=== PATIENT | male | born 1945 | race Two or more races ===

== ENCOUNTER 2019-09-20 21:00 | Inpatient (IN) | payer MEDICARE, OTHER ==
[~2019-09-20] VITALS: Ht 177.8 cm; Wt 73.9 kg
[~2019-09-20 21:00] MED LIST: ASPI-1169 PO; ATOR10TA PO; CARV3.122 PO; DOCU-199 PO; ISOS10TA8 PO; PRAS5TAB3 PO; QUIN10TA16 PO; RANO10003 PO; SENN8.6T22 PO
--- NOTE | 2019-09-20 21:00 | NUR ---
BIB PRIVATE AMBULANCE FROM [facility] C/O AGITATION [facility] pt awake, alert, -sob, nad noted, vss ,pending md nuñez
[2019-09-20 22:13] LABS: BASOPHILS # (AUTO) 0.1 /CMM (0.0-0.2); BASOPHILS % (AUTO) 0.6 % (0.0-2.0); EOSINOPHILS % (AUTO) 1.2 % (0.0-6.0); HEMATOCRIT 41 % (39-51); HEMOGLOBIN 13.7 g/dL (13.5-17.5); LYMPHOCYTES # (AUTO) 1.2 /CMM (0.8-4.8); LYMPHOCYTES % (AUTO) 11.7 % (20.0-44.0); MEAN CORPUSCULAR HGB CONC 34 g/dl (31.0-36.0); MEAN CORPUSCULAR VOLUME 94 fL (80-96); MONOCYTES # (AUTO) 0.5 /CMM (0.1-1.30); MONOCYTES % (AUTO) 5.1 % (2.0-12.0); NEUTROPHILS # (AUTO) 8.6 /CMM (1.8-8.9); NEUTROPHILS % (AUTO) 81.4 % (43.0-81.0); PLATELET COUNT (AUTO) 174 /CMM (150-450); RED BLOOD CELL COUNT(AUTO) 4.34 MIL/uL (4.5-6.0); WHITE BLOOD COUNT (AUTO) 10.5 K/uL (4.3-11.0)
[2019-09-20 22:21] LABS: CALCIUM, SERUM 9.2 mg/dL (8.5-10.1); CARBON DIOXIDE 28 mmol/L (21-32); CHLORIDE 110 mmol/L (98-107); GLUCOSE 146 mg/dL (74-106); POTASSIUM 4.3 mmol/L (3.5-5.1); SODIUM SERUM 144 mmol/L (136-145); UREA NITROGEN, BLOOD 26 mg/dL (7-18)
[2019-09-20 22:37] LABS: ACETAMINOPHEN 0 ug/ml (10-30); ALANINE AMINOTRANSFERASE 23 U/L (12-78); ALBUMIN 3.1 g/dL (3.4-5.0); ALCOHOL, BLOOD < 3 mg/dL (0-0); ALKALINE PHOSPHATASE 86 U/L (46-116); ASPARTATE AMINOTRANSFERASE 22 U/L (15-37); BILIRUBIN,DIRECT 0.1 mg/dL (0.0-0.2); BILIRUBIN,TOTAL 0.7 mg/dL (0.2-1.0); TOTAL PROTEIN, SERUM 6.8 g/dL (6.4-8.2)
--- NOTE | 2019-09-20 22:52 | NUR ---
CALLED REPAIRER MAINTENANCE BUILDING PEDIATRIC SPEECH LANGUAGE PATHOLOGIST AND LEFT A MESSAGE
--- NOTE | 2019-09-20 23:54 | NUR ---
magalie called back, will be here "soon"
[2019-09-21] MEDS ORDERED: ATOR40TA PO (01:09)
[2019-09-21] MEDS ORDERED: EZET10TA16 PO (01:09)
[2019-09-21] MEDS ORDERED: GABA600T12 PO (01:09)
[2019-09-21] MEDS ORDERED: DEXL60CA3 PO (01:09)
[2019-09-21] MEDS ORDERED: OMEG-143 PO (01:09)
[2019-09-21] MEDS ORDERED: DONE5TAB34 PO (01:09)
[2019-09-21] MEDS ORDERED: TAMS-12 PO (01:09)
[2019-09-21] MEDS ORDERED: MIRT15TA PO (01:09)
[2019-09-21] MEDS ORDERED: AMLO5TAB4 PO (01:09)
[2019-09-21] MEDS ORDERED: DOCU-141 PO (01:09)
[2019-09-21] MEDS ORDERED: ISOS30TA6 PO (01:09)
[2019-09-21] MEDS ORDERED: AMYL1CAP58 PO (01:09)
[2019-09-21] MEDS ORDERED: HYDR-4075 PO (01:09)
[2019-09-21] MEDS ORDERED: TICA90TA PO (01:09)
--- NOTE | 2019-09-21 01:17 | NUR ---
report given to elie cotton at gps pt will be transported to gps
[2019-09-21] MEDS ORDERED: LORAZEPAM 0.5 MG TABLET PO PRN (01:30)
[2019-09-21] MEDS ORDERED: BLOOD SUGAR DIAGNOSTIC 1 EACH STRIP IN ONE (01:30)
[2019-09-21] MEDS ORDERED: TEMAZEPAM 7.5 MG CAPSULE PO PRN (01:30)
[2019-09-21] MEDS ORDERED: MAG HYDROX/AL HYDROX/SIMETH 30 ML UDC PO PRN (01:30)
[2019-09-21] MEDS ORDERED: MAGNESIUM HYDROXIDE 30 ML UDC PO PRN (01:30)
[2019-09-21 01:59] VITALS: BP 130/46
--- NOTE | 2019-09-21 03:06 | NUR ---
GPS CABINETMAKER APPRENTICE NOTES: ADMITTED 73 Y/O MALE. PT [facility] ON A 5150. PER HOLD PT WAS SENT FROM NURSING FACILITY DO TO BEING AGGRESSIVE AND COMBATIVE TOWARDS STAFF. PT IS HERE FOR DTO AND GD. PT WAS YELLING, SCREAMING, THROWING THINGS UNPROVOKED. UPON FACE TO FACE ASSESSMENT PT IS ALERT/ ORIENTED X1, UNCOOPERATIVE, EASILY AGITATED, FORGETFUL, CONFUSED, UNKEMPT, POOR HISTORIAN, AND DISORGANIZED. PT IS ITALIAN SPEAKING AND UNDERSTAND/ SPEAKS LITTLE NAMIBIAN. PT STATED, "WHAT YOU WANT FROM ME?!" PT DENIES SI/HI AT THIS TIME. PT REFUSED TO SIGN CONSENT PAPERS DUE TO CONDITION. ENVIRONMENTAL SAFETY CHECK DONE Q 15 MIN. ENCOURAGE TO VERBALIZE FEELINGS AND CONCERNS TO STAFF. ORIENTED TO THE UNIT. VITALS TAKEN WNL. BELONGING AND CONTRABAND WERE DONE AND CHECKED. NURSING ASSESSMENT DONE. PT REFUSED TO TAKE PICTURE FOR IDENTIFICATION. PT REFUSED BODY ASSESSMENT. PT RIGHTS DISCUSS BY MARBLE INSTALLER SUPERVISOR. PROVIDED PT WITH HANDBOOK AND MED GUIDE. VITALS SIGNS TAKEN WNL. PT REFUSED INITIAL BLOOD SUGAR CHECK, EXPLAINED RISKS AND BENEFITS. STILL REFUSED X3. NO S/S OF RESP DISTRESS. BREATHING EVEN AND UNLABORED. CONTINUE TO MONITOR.
[2019-09-21 07:33] LABS: CREATININE 0.9 mg/dL (0.6-1.3)
[2019-09-21 08:00] VITALS: BP 105/59
[2019-09-21] MEDS ORDERED: hydrALAZINE HCL 10 MG TABLET PO PRN (08:30)
[2019-09-21] MEDS: PANTOPRAZOLE 40 MG TABLET.DR PO SCH (08:39)
[2019-09-21] MEDS: LIPASE/PROTEASE/AMYLASE 1 EACH CAPSULE.DR PO SCH (09:00)
[2019-09-21] MEDS: ISOSORBIDE MONONITRATE (30MG) 30 MG TAB.SR.24H PO SCH (09:00)
[2019-09-21] MEDS: TAMSULOSIN 0.4 MG CAP.SR.24H PO SCH (09:00)
[2019-09-21] MEDS ORDERED: EZETIMIBE 10 MG TABLET PO SCH (09:00)
[2019-09-21] MEDS: AMLODIPINE BESYLATE 5 MG TABLET PO SCH (09:00)
[2019-09-21] MEDS ORDERED: MISCELLANEOUS MED 1 EA EA PO SCH (09:00)
[2019-09-21] MEDS ORDERED: LORAZEPAM INJ 2 MG/ML VIAL IM STA (11:05)
[2019-09-21] MEDS ORDERED: OLANZAPINE 10 MG VIAL IM STA (11:05)
[2019-09-21] MEDS: GABAPENTIN 100 MG CAPSULE PO SCH ×2 (12:00→17:08)
--- NOTE | 2019-09-21 12:25 | NUR ---
PATIENT REFUSED 0900 MEDS
[2019-09-21] MEDS: TICAGRELOR 90 MG TABLET PO SCH ×2 (13:36→18:20)
--- NOTE | 2019-09-21 14:02 | NUR ---
Family Contact: SW called the pts nieceNi ([phone]), and left a voicemail that stated that the SW would like to speak to her regarding the pts initial and discharge plan.
--- NOTE | 2019-09-21 14:14 | NUR ---
Facility Contact: TRINH contacted Malathi ([phone]) from [facility] and confirmed that the pt can return to the facility once the pt is stable.
--- NOTE | 2019-09-21 15:36 | NUR ---
Group Note: SW encouraged pt to participate in group therapy on 09/21/19 at 2pm to discuss "social supports." Pt has been physically and verbally aggressive and has received IM shots. Pt is not appropriate for group.
--- NOTE | 2019-09-21 15:46 | NUR ---
Family Contact: TRINH called the pts cayetanoeceNi ([phone]), and informed her of pts admission to the hospital and the plan that the pt is going to return to [facility].
[2019-09-21 16:00] VITALS: BP 101/71
--- NOTE | 2019-09-21 16:11 | NUR ---
Initial Discharge Plan: Pt currently resides at [facility] located at [address] [place] [address], [place], [place]; ([phone]). Per pt's niece, Ni ([phone]), she wants the pt to return to the facility. SW will work with the MD and the pt regarding appropriate discharge planning. SW will form a safe and proper discharge.
[2019-09-21] MEDS: DOCUSATE SODIUM 100 MG CAPSULE PO SCH (17:08)
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
--- NOTE | 2019-09-21 20:00 | NUR ---
RN NOTES: PT. NOTED VERY ANXIOUS UNCOOPERTIVE PARANOID YELLING BANGING ARMS LAEGS WITH BED SIDE RAILS,AND VISUAL NOTED WITH SELF INFLICTED UPPER, LOWER EXTREMITIES WITH MULTIPLE SKIN DISCOLORATIONS , PT. REFUSED SKIN ASSESSMENT AND PICTURES AT THIS TIME , WILL CONTINUITY WITH CARE.
[2019-09-21 20:12] VITALS: BP 137/85
[2019-09-21] MEDS: LORAZEPAM 0.5 MG TABLET PO PRN (20:23)
--- NOTE | 2019-09-21 20:23 | NUR ---
RN NOTES: PT. C/O ANXIOUS , PARANOID, UNCOOPERATIVE, ATIVAN 1 MG PO PRN GIVEN PER PT. REQUEST , WILL CONTINUE TO MONITOR.
[2019-09-21] MEDS: ATORVASTATIN 40 MG TABLET PO SCH (22:08)
[2019-09-21] MEDS: QUETIAPINE FUMARATE 25 MG TABLET PO SCH (22:08)
[2019-09-21] MEDS: DONEPEZIL 5 MG TABLET PO SCH (22:08)
[2019-09-21] MEDS: GABAPENTIN 300 MG CAPSULE PO SCH (22:08)
[2019-09-21] MEDS: EZETIMIBE 10 MG TABLET PO SCH (22:08)
--- NOTE | 2019-09-21 23:00 | NUR ---
RN NOTES : PT. RESTING HIS BED COMFORTABLE AND ALLOWED TO TAKE SKIN PICTURES AT THIS TIME FOR RIGHT ARM,RIGHT HAND ,LEFT ARM LEFT HAND ,PICTURES TAKEN AND PLACED IN THE CHART.
[2019-09-22 07:24] LABS: CHOLESTEROL 91 mg/dL (<200); HDL CHOLESTEROL 26 mg/dL (40-60); LDL 56 mg/dL (0-99); TRIGLYCERIDES 76 mg/dL (30-150)
[2019-09-22 08:00] VITALS: BP 110/60
[2019-09-22] MEDS: TICAGRELOR 90 MG TABLET PO SCH ×3 (09:00→18:19)
[2019-09-22] MEDS: ISOSORBIDE MONONITRATE (30MG) 30 MG TAB.SR.24H PO SCH (09:00)
[2019-09-22] MEDS: AMLODIPINE BESYLATE 5 MG TABLET PO SCH (09:00)
[2019-09-22] MEDS: GABAPENTIN 100 MG CAPSULE PO SCH ×3 (09:00→18:19)
--- NOTE | 2019-09-22 15:25 | NUR ---
GROUP NOTE: SW encouraged pt to participate in group therapy on this present day to discuss "discharge planning." Pt was asleep and not easily aroused.
[2019-09-22] MEDS: ESCITALOPRAM OXALATE (10 MG) 10 MG TABLET PO SCH (15:30)
[2019-09-22] MEDS: PANTOPRAZOLE 40 MG TABLET.DR PO SCH (15:30)
--- NOTE | 2019-09-22 15:30 | NUR ---
PT. SLEPT TILL THIS TIME IN AFTERNOON,SO AM MEDS GIVEN AT THIS TIME.DR. GALEAS MADE AWARE.
[2019-09-22] MEDS: LIPASE/PROTEASE/AMYLASE 1 EACH CAPSULE.DR PO SCH (15:32)
[2019-09-22] MEDS: TAMSULOSIN 0.4 MG CAP.SR.24H PO SCH (15:37)
[2019-09-22 16:00] VITALS: BP 123/62
[2019-09-22] MEDS: DOCUSATE SODIUM 100 MG CAPSULE PO SCH (18:18)
[2019-09-22 20:40] VITALS: BP 125/77
[2019-09-22] MEDS: QUETIAPINE FUMARATE 25 MG TABLET PO SCH (21:35)
[2019-09-22] MEDS: ATORVASTATIN 40 MG TABLET PO SCH (21:35)
[2019-09-22] MEDS: EZETIMIBE 10 MG TABLET PO SCH (21:35)
[2019-09-22] MEDS: DONEPEZIL 5 MG TABLET PO SCH (21:35)
[2019-09-22] MEDS: GABAPENTIN 300 MG CAPSULE PO SCH (21:36)
[2019-09-23 08:00] VITALS: BP 105/67
[2019-09-23] MEDS: ISOSORBIDE MONONITRATE (30MG) 30 MG TAB.SR.24H PO SCH (09:00)
[2019-09-23] MEDS: AMLODIPINE BESYLATE 5 MG TABLET PO SCH (09:00)
[2019-09-23] MEDS: PANTOPRAZOLE 40 MG TABLET.DR PO SCH (10:42)
[2019-09-23] MEDS: GABAPENTIN 100 MG CAPSULE PO SCH ×2 (10:42→18:43)
[2019-09-23] MEDS: ESCITALOPRAM OXALATE (10 MG) 10 MG TABLET PO SCH (10:42)
[2019-09-23] MEDS: TAMSULOSIN 0.4 MG CAP.SR.24H PO SCH (10:43)
[2019-09-23] MEDS: TICAGRELOR 90 MG TABLET PO SCH ×2 (10:43→18:43)
[2019-09-23] MEDS: LIPASE/PROTEASE/AMYLASE 1 EACH CAPSULE.DR PO SCH (10:45)
[2019-09-23] MEDS: LORAZEPAM 0.5 MG TABLET PO PRN ×2 (11:36→21:43)
--- NOTE | 2019-09-23 11:37 | NUR ---
MEDICATED WITH ATIVAN PO SEEMS A LITTLE AGITATED.
[2019-09-23] MEDS ORDERED: LORAZEPAM INJ 2 MG/ML VIAL IM ONE (13:00)
[2019-09-23] MEDS ORDERED: OLANZAPINE 10 MG VIAL IM ONE (13:00)
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
--- NOTE | 2019-09-23 13:20 | NUR ---
RESTING IN RM. AFTER INJECTION.
--- NOTE | 2019-09-23 13:45 | NUR ---
WALKING IN [place],LOOKING A LITLE DROWSY.RN ASSISTED BACK TO BED.NON MACEDONIAN SPEAKING
--- NOTE | 2019-09-23 15:20 | NUR ---
GPS RN- RN SITTING AT DESK OUTSIDE PT. RM.HEARD LOUD NOISE,WENT IN TO PT. RM.FOUND PT LYING ON BACK IN RM.PT. ALERT AND ORIENTED,NON-LAO SPEAKING.INSTRUCTED TO STAY IN PLACE.RN CALLED FOR ADD'L. HELP.AND PT. ATTEMPTED TO GET SELF UP AND SLIPPED AGAIN. IN THE LAST HOUR PT CONTINUALLY TRIED TO GET OUT OF BED BY SELF. BED ALARM SET. AT 1305 HAD ZYPREXA , ATIVAN EMERGENCY INJECTION FOR ACTING OUT BEHAVIOR. SKIN ASSESSED NO APPARENT INJURY. ALTHOUGH NON-LAO SPEAKING RN QUESTIONED PT ABOUT PAIN, DIZZINESS, OR OTHER SYMPTOMS, PT DENIED. PTS VITALS WERE CHECKED AND WERE STABLE. MANAGER BILLING AWARE, DR. DURBIN MADE AWARE, WELL DR. GALEAS. NO APPARENT INJURY.
[2019-09-23 16:00] VITALS: BP 111/65
--- NOTE | 2019-09-23 16:53 | NUR ---
PT. WITH 1:1 SITTER VS STABLE.NO APPARENT INJURY,AWAITING CALL BACK FROM DR. GALEAS.
[2019-09-23] MEDS: DOCUSATE SODIUM 100 MG CAPSULE PO SCH (18:43)
--- NOTE | 2019-09-23 19:20 | NUR ---
RN INITIAL NOTES: RECEIVED PT, CURRENTLY IN MARI-CHAIR. S/P FALL THIS AFTERNOON. PER REPORT PT BEEN AGGRESSIVE AND COMBATIVE TRYING TO HIT STAFF, GOING FROM ROOM TO ROOM. PT APPEARS TO BE STRONG, MANAGE TO MOVE THE MARI-CHAIR, TRYING TO SLIP HIMSELF TO THE FLOOR, HIGH RISK FOR FALL, UNCOOPERATIVE, RESTLESS, AGITATED. REFUSING SKIN ASSESSMENT. SPEAKS MINIMAL SYRIAC. BUT WHEN ASKED, IF HE HAS PLANS OF HURTING HIMSELF, PT KEPT SAYING NO, AND STATED "GET ME OUT OF HERE!". SAFETY PRECAUTIONS FOR FALL INITIATED, WILL MONITOR [id number] FOR SAFETY AND ANY CHANGES IN BEHAVIOR.
--- NOTE | 2019-09-23 19:46 | NUR ---
CALL OUT TO FAMILY TO REPORT THAT PT. FELL TODAY IN RM.NUMBER LISTED IS FOR EUGENIE PEÑA.
--- NOTE | 2019-09-23 19:55 | NUR ---
rn notes: sitter arrived, given report for what happened during the day, and why sitter is needed. pt currently in dining area, sitting on gerichair, pt very agitated, managed to move and shake the gerichair. will put back in the bed/room.
[2019-09-23 20:00] VITALS: BP 125/88
--- NOTE | 2019-09-23 20:04 | NUR ---
rn notes: dorcas keenan received a message from dr yee, stating no x ray needed for the pt. notifed by day dorcas keenan regarding fall incident in the afternoon. rn employee healthranjeet nathan made aware.
[2019-09-23 20:58] VITALS: BP 125/88
[2019-09-23] MEDS: GABAPENTIN 300 MG CAPSULE PO SCH (21:42)
[2019-09-23] MEDS: ATORVASTATIN 40 MG TABLET PO SCH (21:42)
[2019-09-23] MEDS: DONEPEZIL 5 MG TABLET PO SCH (21:43)
[2019-09-23] MEDS: QUETIAPINE FUMARATE 25 MG TABLET PO SCH (21:43)
[2019-09-23] MEDS: EZETIMIBE 10 MG TABLET PO SCH (21:46)
--- NOTE | 2019-09-23 21:53 | NUR ---
PRN ATIVAN: PT RESTLESS, AGITATED, ANXIOUS, PRN ATIVAN ADMINISTERED AT THIS TIME. ALL DUE MEDS ADMINISTERED, CRUSHED ALL MEDS AND MIXED WITH ICE CREAM. PT SWALLOW ALL MEDS, SITJIMENEZ AND VALENCIA JESUS WITNESSES.
--- NOTE | 2019-09-23 22:31 | NUR ---
RN NOTES: PLACED PT BACK IN BED, KEPT COMFORTABLE, SITTER WARREN AT BED SIDE. SAFETY PRECAUTIONS FOR FALL INITIATED, SIDE RAILS UP X3 FOR SAFETY, WILL CONTINUE TO MONITOR PT [id number] FOR SAFETY AND ANY CHANGES IN BEHAVIOR.
[2019-09-24 08:00] VITALS: BP 101/60
[2019-09-24] MEDS: AMLODIPINE BESYLATE 5 MG TABLET PO SCH (09:00)
[2019-09-24] MEDS: ISOSORBIDE MONONITRATE (30MG) 30 MG TAB.SR.24H PO SCH (09:00)
[2019-09-24] MEDS: GABAPENTIN 100 MG CAPSULE PO SCH ×2 (09:29→17:48)
[2019-09-24] MEDS: TAMSULOSIN 0.4 MG CAP.SR.24H PO SCH (09:29)
[2019-09-24] MEDS: ESCITALOPRAM OXALATE (10 MG) 10 MG TABLET PO SCH (09:30)
[2019-09-24] MEDS: PANTOPRAZOLE 40 MG TABLET.DR PO SCH (09:30)
[2019-09-24] MEDS: LIPASE/PROTEASE/AMYLASE 1 EACH CAPSULE.DR PO SCH (10:06)
[2019-09-24] MEDS: TICAGRELOR 90 MG TABLET PO SCH ×2 (10:08→17:52)
[2019-09-24 16:00] VITALS: BP 105/54
--- NOTE | 2019-09-24 17:11 | NUR ---
PT. IS HIGHLY AGITATED, AGGRESSIVE , COMBATIVE AND HITTING STAFFS. CALLED DR. DURBIN AND ORDERED ZYPREXA 10 MG IM.
[2019-09-24] MEDS ORDERED: OLANZAPINE 10 MG VIAL IM ONE (17:30)
[2019-09-24] MEDS: DOCUSATE SODIUM 100 MG CAPSULE PO SCH (17:49)
[2019-09-24] MEDS: QUETIAPINE FUMARATE 25 MG TABLET PO SCH ×2 (17:49→21:10)
--- NOTE | 2019-09-24 20:00 | NUR ---
GPS/PUBLIC HEALTH EPIDEMIOLOGIST NOTES: PT. REFUSED HS VITALS. OFFERED 3X. EXPLAINED RISK AND BENEFITS. PT. STILL REFUSED.
[2019-09-24] MEDS: ATORVASTATIN 40 MG TABLET PO SCH (21:09)
[2019-09-24] MEDS: EZETIMIBE 10 MG TABLET PO SCH (21:09)
[2019-09-24] MEDS: DONEPEZIL 5 MG TABLET PO SCH (21:09)
[2019-09-24] MEDS: GABAPENTIN 300 MG CAPSULE PO SCH (21:10)
[2019-09-25] MEDS: LORAZEPAM 0.5 MG TABLET PO PRN (01:01)
[2019-09-25 08:00] VITALS: BP 105/80
[2019-09-25] MEDS: GABAPENTIN 100 MG CAPSULE PO SCH ×2 (08:51→16:32)
[2019-09-25] MEDS: ESCITALOPRAM OXALATE (10 MG) 10 MG TABLET PO SCH (08:51)
[2019-09-25] MEDS: TAMSULOSIN 0.4 MG CAP.SR.24H PO SCH (08:51)
[2019-09-25] MEDS: PANTOPRAZOLE 40 MG TABLET.DR PO SCH (08:52)
[2019-09-25] MEDS: ISOSORBIDE MONONITRATE (30MG) 30 MG TAB.SR.24H PO SCH (08:52)
[2019-09-25] MEDS: QUETIAPINE FUMARATE 25 MG TABLET PO SCH ×3 (08:53→21:31)
[2019-09-25] MEDS: AMLODIPINE BESYLATE 5 MG TABLET PO SCH (08:54)
[2019-09-25] MEDS: LIPASE/PROTEASE/AMYLASE 1 EACH CAPSULE.DR PO SCH (08:55)
[2019-09-25] MEDS: TICAGRELOR 90 MG TABLET PO SCH ×2 (08:56→16:31)
[2019-09-25 16:00] VITALS: BP 131/61
--- NOTE | 2019-09-25 16:51 | NUR ---
DR. DURIBN GAVE AN ORDER TO D/C 1:1. PT. IS CALM, COOPERATIVE AND FOLLOW DIRECTIONS. PT. ABLE TO WALK WITH NO ASSISTANCE.
[2019-09-25] MEDS: DOCUSATE SODIUM 100 MG CAPSULE PO SCH (17:09)
[2019-09-25 20:25] VITALS: BP 112/70
[2019-09-25] MEDS: DONEPEZIL 5 MG TABLET PO SCH (21:31)
[2019-09-25] MEDS: GABAPENTIN 300 MG CAPSULE PO SCH (21:31)
[2019-09-25] MEDS: ATORVASTATIN 40 MG TABLET PO SCH (21:31)
[2019-09-25] MEDS: EZETIMIBE 10 MG TABLET PO SCH (21:31)
[2019-09-26 08:00] VITALS: BP 107/54
[2019-09-26] MEDS: PANTOPRAZOLE 40 MG TABLET.DR PO SCH (08:24)
[2019-09-26] MEDS: TICAGRELOR 90 MG TABLET PO SCH ×2 (09:29→16:17)
[2019-09-26] MEDS: ISOSORBIDE MONONITRATE (30MG) 30 MG TAB.SR.24H PO SCH (09:29)
[2019-09-26] MEDS: GABAPENTIN 100 MG CAPSULE PO SCH ×2 (09:30→16:16)
[2019-09-26] MEDS: QUETIAPINE FUMARATE 25 MG TABLET PO SCH ×3 (09:30→21:02)
[2019-09-26] MEDS: ESCITALOPRAM OXALATE (10 MG) 10 MG TABLET PO SCH (09:30)
[2019-09-26] MEDS: TAMSULOSIN 0.4 MG CAP.SR.24H PO SCH (09:30)
[2019-09-26] MEDS: AMLODIPINE BESYLATE 5 MG TABLET PO SCH (09:30)
[2019-09-26] MEDS: LIPASE/PROTEASE/AMYLASE 1 EACH CAPSULE.DR PO SCH (09:31)
[2019-09-26 16:00] VITALS: BP 125/75
[2019-09-26] MEDS: DOCUSATE SODIUM 100 MG CAPSULE PO SCH (17:19)
[2019-09-26 20:16] VITALS: BP 99/53
[2019-09-26] MEDS: ATORVASTATIN 40 MG TABLET PO SCH (21:02)
[2019-09-26] MEDS: GABAPENTIN 300 MG CAPSULE PO SCH (21:03)
[2019-09-26] MEDS: EZETIMIBE 10 MG TABLET PO SCH (21:03)
[2019-09-26] MEDS: DONEPEZIL 5 MG TABLET PO SCH (21:03)
[2019-09-27 08:00] VITALS: BP 120/69
[2019-09-27] MEDS: TICAGRELOR 90 MG TABLET PO SCH ×2 (08:22→17:20)
[2019-09-27] MEDS: LIPASE/PROTEASE/AMYLASE 1 EACH CAPSULE.DR PO SCH (08:23)
[2019-09-27] MEDS: ESCITALOPRAM OXALATE (10 MG) 10 MG TABLET PO SCH (08:24)
[2019-09-27] MEDS: PANTOPRAZOLE 40 MG TABLET.DR PO SCH (08:24)
[2019-09-27] MEDS: AMLODIPINE BESYLATE 5 MG TABLET PO SCH (08:27)
[2019-09-27] MEDS: ISOSORBIDE MONONITRATE (30MG) 30 MG TAB.SR.24H PO SCH (08:27)
[2019-09-27] MEDS: TAMSULOSIN 0.4 MG CAP.SR.24H PO SCH (08:27)
[2019-09-27] MEDS: GABAPENTIN 100 MG CAPSULE PO SCH ×2 (08:27→17:19)
[2019-09-27] MEDS: QUETIAPINE FUMARATE 25 MG TABLET PO SCH ×3 (08:29→21:07)
[2019-09-27] MEDS: LORAZEPAM 0.5 MG TABLET PO PRN ×2 (12:47→18:52)
--- NOTE | 2019-09-27 12:49 | NUR ---
RN NOTE:PATIENT AGITATED MEDICATED WITH ATIVAN 1MG PO X1 WILL CONTINUE TO MONITOR .
[2019-09-27] MEDS: DOCUSATE SODIUM 100 MG CAPSULE PO SCH (17:19)
--- NOTE | 2019-09-27 18:58 | NUR ---
RN NOTE:PATIENT AGITATED MEDICATED WITH ATIVAN 1MG PO X1 WILL CONTINUE TO MONITOR .
[2019-09-27 20:47] VITALS: BP 140/70
--- NOTE | 2019-09-27 20:51 | NUR ---
GPS-RN LEFT A VOICEMAIL MESSAGE TO DR. GALEAS REGARDING EKG RESULT. AWAITING CALL BACK.
[2019-09-27] MEDS: DONEPEZIL 5 MG TABLET PO SCH (21:07)
[2019-09-27] MEDS: ATORVASTATIN 40 MG TABLET PO SCH (21:07)
[2019-09-27] MEDS: GABAPENTIN 300 MG CAPSULE PO SCH (21:07)
[2019-09-27] MEDS: EZETIMIBE 10 MG TABLET PO SCH (21:58)
--- NOTE | 2019-09-27 23:00 | NUR ---
GPS-RN PATIENT NOTED TO HAVE A SKIN TEAR ON RIGHT LOWER LEG MEASURING 1.3CM X 0.3CM. WITH SMALL AMOUNT OF BLEEDING NOTED. NO SWELLING NOTED. PT. DENIES PAIN WHEN TOUCHED ON AFFECTED AREA. WHEN ASKED PATIENT WHAT HAPPENED? PT. UNABLE TO GIVE DETAILS. INITIAL TREATMENT RENDERED. WOUND CARE CONSULT ORDERED. PATIENT MADE COMFORTABLE. HANDLED GENTLY DURING CARE. WILL CONTINUE TO MONITOR. Addendum: 09/28/19 at 0505 by DANIEL CAMPBELL RN UPON DOING MY WEEKLY SKIN ASSESSMENT.
[2019-09-27] MEDS: ACETAMINOPHEN 325 MG TABLET PO PRN (23:11)
[2019-09-28 08:00] VITALS: BP 108/55
[2019-09-28] MEDS: PANTOPRAZOLE 40 MG TABLET.DR PO SCH (08:49)
[2019-09-28] MEDS: GABAPENTIN 100 MG CAPSULE PO SCH ×2 (08:57→16:47)
[2019-09-28] MEDS: TAMSULOSIN 0.4 MG CAP.SR.24H PO SCH (08:57)
[2019-09-28] MEDS: AMLODIPINE BESYLATE 5 MG TABLET PO SCH (08:58)
[2019-09-28] MEDS: ESCITALOPRAM OXALATE (10 MG) 10 MG TABLET PO SCH (08:58)
[2019-09-28] MEDS: ISOSORBIDE MONONITRATE (30MG) 30 MG TAB.SR.24H PO SCH (08:58)
[2019-09-28] MEDS: TICAGRELOR 90 MG TABLET PO SCH ×2 (09:04→16:47)
[2019-09-28] MEDS: LIPASE/PROTEASE/AMYLASE 1 EACH CAPSULE.DR PO SCH (09:04)
[2019-09-28] MEDS: QUETIAPINE FUMARATE 25 MG TABLET PO SCH ×3 (09:06→21:14)
--- NOTE | 2019-09-28 10:21 | NUR ---
WOUND CARE CONSULT: PT PRESENTS WITH MULTIPLE AREAS OF SKIN DISCOLORATION AND RT LOWER LEG SKIN TEAR. PT COMBATIVE AT TIMES. RECOMMEND DPM CONSULT. DR TERRY NOTIFIED OF CONSULT REQUEST. PT IS AMBULATORY AND INCONTINENT AT TIMES. RECOMMENDATIONS MADE FOR SKIN PROTECTION. DISCUSSED WITH NURSING STAFF. WILL SEE PRN. DONATO IN AGREEMENT WITH PLAN OF CARE. Addendum: 09/28/19 at 1023 by OLIMPIA WEISS WNDNU Amended: Links added.
--- NOTE | 2019-09-28 10:30 | NUR ---
GPS RN NOTES DR. DURBIN AT BEDSIDE EARLIER. DC'D LEXPRO AND PATIENT STARTED ON BUSPAR 5 MG TID
[2019-09-28] MEDS: Z GUARD REMEDY 2 OZ OINT TP SCH (10:42)
[2019-09-28] MEDS: LORAZEPAM 0.5 MG TABLET PO PRN ×2 (10:46→23:25)
[2019-09-28] MEDS: busPIRone 5 MG TABLET PO SCH ×3 (10:46→16:47)
--- NOTE | 2019-09-28 15:19 | NUR ---
Family Contact: TRINH called the pts Ni hamilton ([phone]), and left a voicemail that provided her with an update regarding the pts progress. TRINH stated that there is no discharge date at this time and that the pt will be returning to [facility].
[2019-09-28 16:00] VITALS: BP 110/54
[2019-09-28] MEDS: DOCUSATE SODIUM 100 MG CAPSULE PO SCH (17:03)
[2019-09-28 20:41] VITALS: BP 117/62
[2019-09-28] MEDS: EZETIMIBE 10 MG TABLET PO SCH (21:13)
[2019-09-28] MEDS: ATORVASTATIN 40 MG TABLET PO SCH (21:14)
[2019-09-28] MEDS: GABAPENTIN 300 MG CAPSULE PO SCH (21:14)
[2019-09-28] MEDS: DONEPEZIL 5 MG TABLET PO SCH (21:14)
--- NOTE | 2019-09-28 23:28 | NUR ---
RN NOTES ; PT. NOTED VERY ANXIOUS , NOT FOLLOWING ANY REDIRECTIONS ,BANGING UPPER LOWER EXTRIMITES WITH SIDE RAILS AND CHAIRS, NOT STAYING IN BED ATIVAN 1 MG PO PRN GIVEN , WILL CONTINUE TO MONITOR.
[2019-09-29 08:00] VITALS: BP 127/65
[2019-09-29] MEDS: busPIRone 5 MG TABLET PO SCH ×3 (09:09→16:20)
[2019-09-29] MEDS: AMLODIPINE BESYLATE 5 MG TABLET PO SCH (09:09)
[2019-09-29] MEDS: PANTOPRAZOLE 40 MG TABLET.DR PO SCH (09:09)
[2019-09-29] MEDS: QUETIAPINE FUMARATE 25 MG TABLET PO SCH ×3 (09:09→21:30)
[2019-09-29] MEDS: TAMSULOSIN 0.4 MG CAP.SR.24H PO SCH (09:09)
[2019-09-29] MEDS: ISOSORBIDE MONONITRATE (30MG) 30 MG TAB.SR.24H PO SCH (09:09)
[2019-09-29] MEDS: TICAGRELOR 90 MG TABLET PO SCH ×2 (09:10→16:20)
[2019-09-29] MEDS: LIPASE/PROTEASE/AMYLASE 1 EACH CAPSULE.DR PO SCH (09:12)
[2019-09-29] MEDS: Z GUARD REMEDY 2 OZ OINT TP SCH (09:13)
[2019-09-29] MEDS: GABAPENTIN 100 MG CAPSULE PO SCH ×3 (12:58→21:00)
--- NOTE | 2019-09-29 14:21 | NUR ---
EARLIER THIS MORNING DURING MY ROUNDS, I NOTICED PATIENT HAD A BRUISE UNDERNEATH HIS RIGHT EYE AND A NEW SCRATCH ON THE BACK OF HIS RIGHT HAND. WHEN INTERVIEWING THE PATIENT, I ASKED HIM IF HE REMEMBERS ANYTHING PERTAINING MY FINDINGS. PER WANDA NATH, DURING THE DAY SHIFT 09/28/2019, PATIENT HAD NO BRUISING UNDERNEATH HIS EYE. PATIENT DOES NOT REMEMBER WHAT HAPPENED AND HE DENIES ANY PAIN TO EITHER SITE. I TOOK PHOTOS OF BOTH SITES AND PLACED IT IN CHART. INFORMED CNVÍCTOR, MUSKRAT TRAPPER, JORDI, SENIOR INTERACTION DESIGNER, WAYNE, DR DURBIN AND DR GALEAS WITH NNO FOR PATIENT. PATIENT DOES NOT SEEM TO BE IN ANY DISTRESS AT THIS TIME AND HAS NO CONCERNS REGARDING HIS SAFETY. WILL CONTINUE TO MONITOR PATIENT FOR SAFETY AND BEHAVIOR PER GPS PROTOCOL. Addendum: 09/29/19 at 1448 by DRE LEE RN ATTEMPTED TO CONTACT NIECE. NO RESPONSE. LEFT VOICEMAIL. AWAITING CALL BACK. INCIDENT REPORT DONE.
--- NOTE | 2019-09-29 14:45 | NUR ---
GROUP NOTE: SW encouraged pt to participate in group on this present day discussing "positive coping skills." Pt not appropriate for group at this time due to his aggressive behavior.
[2019-09-29 16:00] VITALS: BP 104/62
[2019-09-29] MEDS: DOCUSATE SODIUM 100 MG CAPSULE PO SCH (17:18)
[2019-09-29 20:15] VITALS: BP 114/63
[2019-09-29] MEDS: ATORVASTATIN 40 MG TABLET PO SCH (21:30)
[2019-09-29] MEDS: GABAPENTIN 300 MG CAPSULE PO SCH (21:30)
[2019-09-29] MEDS: EZETIMIBE 10 MG TABLET PO SCH (21:30)
[2019-09-29] MEDS: DONEPEZIL 5 MG TABLET PO SCH (21:30)
--- NOTE | 2019-09-29 21:40 | NUR ---
GPS/RN NEURONTIN 100 MG PO QID AT 2100 NOT ADMINISTERED I ADMINISTERED ALREADY THE NEURONTIN 600 MG AT HS. WILL HAVE THE MED CLARIFIED WITH IN A.M.
[2019-09-30 08:00] VITALS: BP 101/57
[2019-09-30] MEDS: ISOSORBIDE MONONITRATE (30MG) 30 MG TAB.SR.24H PO SCH (09:00)
[2019-09-30] MEDS: PANTOPRAZOLE 40 MG TABLET.DR PO SCH (09:22)
[2019-09-30] MEDS: TAMSULOSIN 0.4 MG CAP.SR.24H PO SCH (09:22)
[2019-09-30] MEDS: busPIRone 5 MG TABLET PO SCH ×3 (09:22→17:47)
[2019-09-30] MEDS: GABAPENTIN 100 MG CAPSULE PO SCH ×2 (09:22→12:57)
[2019-09-30] MEDS: QUETIAPINE FUMARATE 25 MG TABLET PO SCH ×3 (09:22→21:15)
[2019-09-30] MEDS: LIPASE/PROTEASE/AMYLASE 1 EACH CAPSULE.DR PO SCH (09:23)
[2019-09-30] MEDS: TICAGRELOR 90 MG TABLET PO SCH ×2 (09:23→18:00)
[2019-09-30] MEDS: Z GUARD REMEDY 2 OZ OINT TP SCH (09:24)
[2019-09-30] MEDS: LORAZEPAM 0.5 MG TABLET PO PRN (15:03)
--- NOTE | 2019-09-30 15:19 | NUR ---
Group Note: SW encouraged pt to participate in group therapy on 09/30/19 at 2pm to discuss discharge planning. Pt has been physically and verbally aggressive on the unit and does not want to participate in any activities. Pt does not appear to be appropriate for group.
[2019-09-30 16:00] VITALS: BP 135/54
[2019-09-30] MEDS: DOCUSATE SODIUM 100 MG CAPSULE PO SCH (17:46)
[2019-09-30 19:40] VITALS: BP 106/69
[2019-09-30] MEDS: GABAPENTIN 300 MG CAPSULE PO SCH (21:14)
[2019-09-30] MEDS: ATORVASTATIN 40 MG TABLET PO SCH (21:14)
[2019-09-30] MEDS: DONEPEZIL 5 MG TABLET PO SCH (21:15)
[2019-09-30] MEDS: EZETIMIBE 10 MG TABLET PO SCH (21:15)
[2019-10-01] VITALS: BP 122/65
[2019-10-01] MEDS: LORAZEPAM 0.5 MG TABLET PO PRN (00:08)
--- NOTE | 2019-10-01 00:15 | NUR ---
GPS RN NOTES: UPON DOING ROUNDS, PT SITING IN THE DAY ROOM YELLING. PT YELLING AT OTHER PT. ASKED PT HOW HE IS FEELING PT STATED, "ANGRY AND NOT RELAXED RIGHT NOW." CHECKED PT VITALS W/ NORMAL LEVELS. ASKED PT IF HE IS FEELING ANXIOUS. PT STATED, "YES!". OFFERED ATIVAN 1MG PO PRN ORDERED. PT AGREED AND TOLERATED MEDICATION WELL. CONTINUE TO MONITOR.
[2019-10-01 08:00] VITALS: BP 124/66
[2019-10-01] MEDS: PANTOPRAZOLE 40 MG TABLET.DR PO SCH (08:18)
[2019-10-01] MEDS: ISOSORBIDE MONONITRATE (30MG) 30 MG TAB.SR.24H PO SCH (09:50)
[2019-10-01] MEDS: QUETIAPINE FUMARATE 25 MG TABLET PO SCH ×3 (09:50→21:29)
[2019-10-01] MEDS: busPIRone 5 MG TABLET PO SCH ×3 (09:50→17:01)
[2019-10-01] MEDS: LIPASE/PROTEASE/AMYLASE 1 EACH CAPSULE.DR PO SCH (09:50)
[2019-10-01] MEDS: TAMSULOSIN 0.4 MG CAP.SR.24H PO SCH (09:50)
[2019-10-01] MEDS: Z GUARD REMEDY 2 OZ OINT TP SCH (09:50)
[2019-10-01] MEDS: TICAGRELOR 90 MG TABLET PO SCH ×2 (09:51→17:01)
[2019-10-01 16:00] VITALS: BP 100/52
[2019-10-01] MEDS: DOCUSATE SODIUM 100 MG CAPSULE PO SCH (17:01)
[2019-10-01 20:00] VITALS: BP 105/61
[2019-10-01 20:16] VITALS: BP 105/61
[2019-10-01] MEDS: GABAPENTIN 300 MG CAPSULE PO SCH (21:29)
[2019-10-01] MEDS: ATORVASTATIN 40 MG TABLET PO SCH (21:29)
[2019-10-01] MEDS: DONEPEZIL 5 MG TABLET PO SCH (21:30)
[2019-10-01] MEDS: EZETIMIBE 10 MG TABLET PO SCH (21:30)
[2019-10-01 22:59] VITALS: BP 100/52
[2019-10-02 08:00] VITALS: BP 100/52
[2019-10-02] MEDS: TAMSULOSIN 0.4 MG CAP.SR.24H PO SCH (08:17)
[2019-10-02] MEDS: ISOSORBIDE MONONITRATE (30MG) 30 MG TAB.SR.24H PO SCH (08:17)
[2019-10-02] MEDS: TICAGRELOR 90 MG TABLET PO SCH ×2 (08:17→17:23)
[2019-10-02] MEDS: QUETIAPINE FUMARATE 25 MG TABLET PO SCH ×3 (08:17→21:08)
[2019-10-02] MEDS: busPIRone 5 MG TABLET PO SCH ×4 (08:17→17:20)
[2019-10-02] MEDS: PANTOPRAZOLE 40 MG TABLET.DR PO SCH (08:17)
[2019-10-02] MEDS: LIPASE/PROTEASE/AMYLASE 1 EACH CAPSULE.DR PO SCH (08:17)
[2019-10-02] MEDS: Z GUARD REMEDY 2 OZ OINT TP SCH (08:17)
[2019-10-02 16:00] VITALS: BP 101/54
--- NOTE | 2019-10-02 17:23 | NUR ---
NOTICED BLOOD IN DIAPER. NOTICED WHAT APPEARS TO BE AN EXTERNAL HEMORRHOID ON BUTTOCK. CALLED DR GALEAS OFFICE. SPOKE TO DR CEMENT SPRAYER HELPER. DR. RUBIO. CBC, PREP H AND COLACE BID ORDERED. NOTIFIED OF DANNY ADMINISTERED BID FOR ANTICOAGULATION.
[2019-10-02] MEDS ORDERED: PHENYLEPHRINE/SHK LV/MO/PET,WH 30 GM TUBE RC PRN (17:30)
[2019-10-02 18:07] LABS: BASOPHILS % (AUTO) 0.3 % (0.0-2.0); EOSINOPHILS % (AUTO) 1.3 % (0.0-6.0); HEMATOCRIT 37 % (39-51); HEMOGLOBIN 12.1 g/dL (13.5-17.5); LYMPHOCYTES % (AUTO) 8.6 % (20.0-44.0); MEAN CORPUSCULAR HGB CONC 33 g/dl (31.0-36.0); MEAN CORPUSCULAR VOLUME 93 fL (80-96); MONOCYTES # (AUTO) 0.7 /CMM (0.1-1.30); NEUTROPHILS # (AUTO) 9.3 /CMM (1.8-8.9); NEUTROPHILS % (AUTO) 83.8 % (43.0-81.0); PLATELET COUNT (AUTO) 174 /CMM (150-450); RED BLOOD CELL COUNT(AUTO) 3.91 MIL/uL (4.5-6.0); WHITE BLOOD COUNT (AUTO) 11.1 K/uL (4.3-11.0)
[2019-10-02 20:25] VITALS: BP 117/51
[2019-10-02] MEDS: EZETIMIBE 10 MG TABLET PO SCH (21:07)
[2019-10-02] MEDS: DONEPEZIL 5 MG TABLET PO SCH (21:07)
[2019-10-02] MEDS: GABAPENTIN 300 MG CAPSULE PO SCH (21:08)
[2019-10-02] MEDS: ATORVASTATIN 40 MG TABLET PO SCH (21:08)
[2019-10-03 08:00] VITALS: BP 100/52
[2019-10-03] MEDS: ISOSORBIDE MONONITRATE (30MG) 30 MG TAB.SR.24H PO SCH (09:00)
[2019-10-03] MEDS: PANTOPRAZOLE 40 MG TABLET.DR PO SCH (09:00)
[2019-10-03] MEDS: LIPASE/PROTEASE/AMYLASE 1 EACH CAPSULE.DR PO SCH (09:00)
[2019-10-03] MEDS: busPIRone 5 MG TABLET PO SCH ×3 (09:00→17:00)
[2019-10-03] MEDS: Z GUARD REMEDY 2 OZ OINT TP SCH (09:00)
[2019-10-03] MEDS: TICAGRELOR 90 MG TABLET PO SCH ×2 (09:00→17:00)
[2019-10-03] MEDS: QUETIAPINE FUMARATE 25 MG TABLET PO SCH ×3 (09:00→22:17)
[2019-10-03] MEDS: TAMSULOSIN 0.4 MG CAP.SR.24H PO SCH (09:00)
[2019-10-03] MEDS ORDERED: DOCUSATE SODIUM 100 MG CAPSULE PO SCH (09:00)
[2019-10-03] MEDS: DONEPEZIL 5 MG TABLET PO SCH (13:34)
[2019-10-03 16:00] VITALS: BP 110/71
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
[2019-10-03 20:00] VITALS: BP 111/61
[2019-10-03 20:39] VITALS: BP 111/61
[2019-10-03] MEDS: SENNOSIDES 8.6 MG TABLET PO SCH (22:17)
[2019-10-03] MEDS: GABAPENTIN 300 MG CAPSULE PO SCH (22:17)
[2019-10-03] MEDS: EZETIMIBE 10 MG TABLET PO SCH (22:17)
[2019-10-03] MEDS: ATORVASTATIN 40 MG TABLET PO SCH (22:18)
[2019-10-03 23:00] VITALS: BP 115/64
[2019-10-04 08:00] VITALS: BP 110/61
[2019-10-04] MEDS: busPIRone 5 MG TABLET PO SCH ×3 (08:16→17:19)
[2019-10-04] MEDS: ISOSORBIDE MONONITRATE (30MG) 30 MG TAB.SR.24H PO SCH (08:20)
[2019-10-04] MEDS: QUETIAPINE FUMARATE 25 MG TABLET PO SCH ×3 (08:21→22:27)
[2019-10-04] MEDS: LIPASE/PROTEASE/AMYLASE 1 EACH CAPSULE.DR PO SCH (08:21)
[2019-10-04] MEDS: Z GUARD REMEDY 2 OZ OINT TP SCH (08:22)
[2019-10-04] MEDS: PANTOPRAZOLE 40 MG TABLET.DR PO SCH (08:22)
[2019-10-04] MEDS: TAMSULOSIN 0.4 MG CAP.SR.24H PO SCH (08:23)
[2019-10-04] MEDS: TICAGRELOR 90 MG TABLET PO SCH ×2 (08:30→17:19)
[2019-10-04 16:00] VITALS: BP 100/55
[2019-10-04 20:00] VITALS: BP 115/54
[2019-10-04 20:04] VITALS: BP 115/54
[2019-10-04] MEDS: EZETIMIBE 10 MG TABLET PO SCH (22:26)
[2019-10-04] MEDS: DONEPEZIL 5 MG TABLET PO SCH (22:26)
[2019-10-04] MEDS: GABAPENTIN 300 MG CAPSULE PO SCH (22:26)
[2019-10-04] MEDS: ATORVASTATIN 40 MG TABLET PO SCH (22:26)
[2019-10-04] MEDS: SENNOSIDES 8.6 MG TABLET PO SCH (22:26)
[2019-10-05] MEDS: Z GUARD REMEDY 2 OZ OINT TP PRN ×3 (01:41→20:40)
[2019-10-05 08:00] VITALS: BP 107/57
[2019-10-05] MEDS: ISOSORBIDE MONONITRATE (30MG) 30 MG TAB.SR.24H PO SCH (09:00)
--- NOTE | 2019-10-05 09:25 | NUR ---
Facility Contact: TRINH contacted Malathi ([phone]) from [facility] and informed her that the pt is being discharged back to their facility the following day.
[2019-10-05] MEDS: busPIRone 5 MG TABLET PO SCH ×3 (09:47→17:14)
[2019-10-05] MEDS: TAMSULOSIN 0.4 MG CAP.SR.24H PO SCH (09:47)
[2019-10-05] MEDS: QUETIAPINE FUMARATE 25 MG TABLET PO SCH ×3 (09:47→22:01)
[2019-10-05] MEDS: TICAGRELOR 90 MG TABLET PO SCH ×2 (09:50→17:16)
[2019-10-05] MEDS: Z GUARD REMEDY 2 OZ OINT TP SCH (09:52)
[2019-10-05] MEDS: LIPASE/PROTEASE/AMYLASE 1 EACH CAPSULE.DR PO SCH (10:05)
[2019-10-05 16:00] VITALS: BP 137/60
[2019-10-05] MEDS: ACETAMINOPHEN 325 MG TABLET PO PRN (19:21)
--- NOTE | 2019-10-05 19:24 | NUR ---
PRN TYLENOL GIVEN PATIENT HAS C/O BODY ACHE & HAS BODY TEMP OF 100.4 AT THIS TIME. PRN TYLENOL 650 MG PO GIVEN. WILL REASSESS FOR EFFECTIVENESS.
[2019-10-05 20:00] VITALS: BP 123/59
--- NOTE | 2019-10-05 20:35 | NUR ---
GPS RN NOTE RECHECKED BODY TEMP, 99.7 AT THIS TIME, PO FLUIDS OFFERED TOLERATED, SOCKS REMOVED. WILL CONTINUE TO MONITOR CLOSELY FOR ANY CHANGES.
[2019-10-05 20:37] VITALS: BP 123/59
[2019-10-05] MEDS: ATORVASTATIN 40 MG TABLET PO SCH (22:01)
[2019-10-05] MEDS: SENNOSIDES 8.6 MG TABLET PO SCH (22:01)
[2019-10-05] MEDS: EZETIMIBE 10 MG TABLET PO SCH (22:01)
[2019-10-05] MEDS: DONEPEZIL 5 MG TABLET PO SCH (22:01)
[2019-10-05] MEDS: GABAPENTIN 300 MG CAPSULE PO SCH (22:02)
--- NOTE | 2019-10-05 22:20 | NUR ---
GPS RN NOTE RECHECKED BODY TEMP, 98.3. NO ACUTE DISTRESS NOTED. MED PT. IS MED COMPLAINT. WILL CONTINUE TO MONITOR.
[2019-10-06 08:00] VITALS: BP 100/61
--- NOTE | 2019-10-06 08:41 | NUR ---
Family Contact: TRINH called the pts Ni hamilton ([phone]), and left a voicemail that stated that the pt is being discharged to [facility] today.
[2019-10-06] MEDS: TICAGRELOR 90 MG TABLET PO SCH (08:53)
[2019-10-06] MEDS: LIPASE/PROTEASE/AMYLASE 1 EACH CAPSULE.DR PO SCH (08:55)
[2019-10-06] MEDS: TAMSULOSIN 0.4 MG CAP.SR.24H PO SCH (08:55)
[2019-10-06] MEDS: QUETIAPINE FUMARATE 25 MG TABLET PO SCH (08:55)
[2019-10-06 08:56] VITALS: BP 100/61
[2019-10-06] MEDS: Z GUARD REMEDY 2 OZ OINT TP SCH (08:56)
[2019-10-06] MEDS: ISOSORBIDE MONONITRATE (30MG) 30 MG TAB.SR.24H PO SCH (08:56)
[2019-10-06] MEDS: busPIRone 5 MG TABLET PO SCH ×2 (08:56→13:01)
--- NOTE | 2019-10-06 12:22 | NUR ---
Facility Contact: TRINH faxed updated notes to [facility] with attn to Malathi to the fax number: [phone].
--- NOTE | 2019-10-06 13:41 | NUR ---
Discharge Note: Pt was discharged to [facility] (SNF) [place] at [address] [place] [address]; ([phone]). Pt was transported via [facility] at 1PM. Pts Ni hamilton ([phone]), was notified. Upon discharge, the pt appeared to be in a euthymic mood and a distressed mood. Pt denied both suicidal and homicidal ideation as well as visual and auditory hallucinatons. Pt appeared to be in a euthymic mood and presents to have a distressed and confused affect. Pt will continue to be under the care of his psychiatrist, Dr. Galarza, located at [address], [place] [address]; and grinding room inspector, Dr. Haile, located at [address] [address]; .
--- NOTE | 2019-10-06 14:30 | NUR ---
RN NOTE- PT DC TO [facility] VIA GURNEY AND AMBULANCE AT THIS TIME. ALERT ORIENTED TO PERSON ONLY. PT IS CONFUSED THOUGH DIRECTABLE AND COOPERATIVE. DENIES SI HI. VS - STABLE. MEDICATION PROFILE ORDERS AND DC PAPERWORK REVIEWED W AMBULANCE STAFF AND THEY VERBALIZED UNDERSTANDING. VALUABLES RETURNED TO PT. ID WRISTBAND REMOVED AND PT TAKEN OFF UNIT.
== END 2019-10-06 14:30 | DRG 885 ==
LOC: ER 21:02 → GPS 09-21 00:58
PROVIDERS: ADMIT Psychiatry & Neurology Psychiatry; ATTEND Internal Medicine
DX: F29 Unspecified psychosis not due to a substance or known physiological condition (principal); F02.81 Dementia in other diseases classified elsewhere, unspecified severity, with behavioral disturbance; G93.40 Encephalopathy, unspecified; R64 Cachexia; G30.9 Alzheimer's disease, unspecified; K21.9 Gastro-esophageal reflux disease without esophagitis; J44.9 Chronic obstructive pulmonary disease, unspecified; I25.10 Atherosclerotic heart disease of native coronary artery without angina pectoris; Z95.1 Presence of aortocoronary bypass graft; Z79.899 Other long term (current) drug therapy; Z98.61 Coronary angioplasty status; N40.0 Benign prostatic hyperplasia without lower urinary tract symptoms; F41.1 Generalized anxiety disorder; S80.12XA Contusion of left lower leg, initial encounter; S80.11XA Contusion of right lower leg, initial encounter; X58.XXXA Exposure to other specified factors, initial encounter; Y93.9 Activity, unspecified; Y92.129 Unspecified place in nursing home as the place of occurrence of the external cause; R73.03 Prediabetes; K86.81 Exocrine pancreatic insufficiency; Z68.23 Body mass index [BMI] 23.0-23.9, adult
CPT/HCPCS: 36415; 80048-TC; 80061-TC; 80076-TC; 82565-TC; 85025-TC; 87081-TC; 97116-TC; 97530-TC; G0480; J2060; J3490

== ENCOUNTER 2020-04-12 10:20 | Inpatient (IN) | payer MEDICARE, OTHER ==
[~2020-04-12] VITALS: Ht 180.3 cm; Wt 72.6 kg
[~2020-04-12 10:20] MED LIST changes: +AMLO5TAB4 PO; +AMYL1CAP58 PO; -ASPI-1169 PO; -ATOR10TA PO; +ATOR40TA PO; -CARV3.122 PO; +DEXL60CA3 PO; +DOCU-141 PO; -DOCU-199 PO; +DONE5TAB34 PO; +EZET10TA16 PO; +GABA600T12 PO; +HYDR-4075 PO; -ISOS10TA8 PO; +ISOS30TA6 PO; +OMEG-143 PO; -PRAS5TAB3 PO; -QUIN10TA16 PO; -RANO10003 PO; -SENN8.6T22 PO; +TAMS-12 PO; +TICA90TA PO
[2020-04-12] MEDS ORDERED: IV NS 0.9% 1,000 ML BAG IV ONE (11:00)
[2020-04-12 11:09] LABS: BASOPHILS % (AUTO) 0.1 % (0.0-2.0); EOSINOPHILS % (AUTO) 0.2 % (0.0-6.0); HEMATOCRIT 37 % (39-51); HEMOGLOBIN 12.2 g/dL (13.5-17.5); LYMPHOCYTES # (AUTO) 1.1 /CMM (0.8-4.8); LYMPHOCYTES % (AUTO) 6.1 % (20.0-44.0); MEAN CORPUSCULAR HGB CONC 33 g/dl (31.0-36.0); MEAN CORPUSCULAR VOLUME 95 fL (80-96); MONOCYTES # (AUTO) 0.9 /CMM (0.1-1.30); MONOCYTES % (AUTO) 5.1 % (2.0-12.0); NEUTROPHILS # (AUTO) 15.4 /CMM (1.8-8.9); NEUTROPHILS % (AUTO) 88.5 % (43.0-81.0); PLATELET COUNT (AUTO) 171 /CMM (150-450); RED BLOOD CELL COUNT(AUTO) 3.88 MIL/uL (4.5-6.0); WHITE BLOOD COUNT (AUTO) 17.4 K/uL (4.3-11.0)
--- NOTE | 2020-04-12 11:15 | NUR ---
PT RECEIVED FROM PREVIOUS NURSE.
[2020-04-12 11:20] LABS: CALCIUM, SERUM 8.4 mg/dL (8.5-10.1); CARBON DIOXIDE 28 mmol/L (21-32); CHLORIDE 112 mmol/L (98-107); CREATININE 2.7 mg/dL (0.6-1.3); GLUCOSE 135 mg/dL (74-106); POTASSIUM 3.9 mmol/L (3.5-5.1); SODIUM SERUM 146 mmol/L (136-145); UREA NITROGEN, BLOOD 54 mg/dL (7-18)
--- NOTE | 2020-04-12 11:20 | NUR ---
URINE COLLECTED VIA IN & OUT CATH PER MD ORDERED. STRICT STERILE TECHNIQUE OBSERVED DURING PROCEDURE
[2020-04-12] MEDS ORDERED: QUET50TA PO (11:28)
[2020-04-12] MEDS ORDERED: BISA10SU11 RC (11:28)
[2020-04-12] MEDS ORDERED: MAGN400O6 PO (11:28)
[2020-04-12] MEDS ORDERED: DONE10TA11 PO (11:28)
[2020-04-12] MEDS ORDERED: LORA-259 PO (11:28)
[2020-04-12] MEDS ORDERED: SENN-261 PO (11:28)
[2020-04-12] MEDS ORDERED: BUSP10TA3 PO (11:28)
[2020-04-12] MEDS ORDERED: QUET25TA PO (11:28)
[2020-04-12] MEDS ORDERED: OMEP20TA5 PO (11:28)
[2020-04-12] MEDS ORDERED: NA P133E RC (11:28)
[2020-04-12] MEDS ORDERED: ACET325T53 PO (11:28)
[2020-04-12] MEDS ORDERED: GABA600T PO (11:28)
[2020-04-12] MEDS ORDERED: CEFTRIAXONE 1GM BAG (ER ONLY) 1 GM/50 ML PIGGYBACK IV ONE (11:30)
[2020-04-12] MEDS ORDERED: AZITHROMYCIN 500 MG in IV D5W 250 ML IV ONE (11:30)
[2020-04-12 11:34] LABS: ALANINE AMINOTRANSFERASE 62 U/L (12-78); ALBUMIN 2.3 g/dL (3.4-5.0); ALKALINE PHOSPHATASE 82 U/L (46-116); ASPARTATE AMINOTRANSFERASE 27 U/L (15-37); BILIRUBIN,DIRECT 0.2 mg/dL (0.0-0.2); BILIRUBIN,TOTAL 0.5 mg/dL (0.2-1.0); TOTAL PROTEIN, SERUM 6.4 g/dL (6.4-8.2)
[2020-04-12 11:46] LABS: APPEARANCE,URINE Clear (CLEAR); BILIRUBIN,URINE SMALL (NEGATIVE); BLOOD, URINE Trace-intact Ery/uL (NEGATIVE); COLOR,URINE Yellow (YELLOW); KETONES,URINE Trace (NEGATIVE); LEUKOCYTE ESTERASE ,URINE Small (NEGATIVE); NITRITE, URINE Negative (NEGATIVE); PROTEIN,URINE 30 mg/dl (NEGATIVE); UGLUCOSE Negative (NEGATIVE)
[2020-04-12 11:47] LABS: BACTERIA,URINE Few /HPF (None Seen)
[2020-04-12 11:48] LABS: SQUAMOUS EPITHELIAL CELL,UR Rare /HPF (None Seen)
--- NOTE | 2020-04-12 11:59 | NUR ---
DR KAREY GALEAS'S OFFICE CALLED. AWAITING FOR CALL BACK.
[2020-04-12] MEDS ORDERED: CEFTRIAXONE 1 G in IV D5W 50 ML IV ONE (12:00)
--- NOTE | 2020-04-12 12:12 | NUR ---
2L NS VIA IV COMPLETED. BP NOTED AT 98/50. MADE AWARE. ORDER RECEIVED FOR AN ADDITIONAL 1L NS VIA IV. NOTED AND CARRIED OUT
[2020-04-12] MEDS ORDERED: IV NS 0.9% 1,000 ML IV ONE (12:30)
--- NOTE | 2020-04-12 12:38 | NUR ---
COVID SWAB DONE AND SENT TO LAB
--- NOTE | 2020-04-12 12:44 | NUR ---
CALLED FOR TELE BED.
--- NOTE | 2020-04-12 13:17 | NUR ---
md aware of bp 95/51. no new orders received. pt is awake and alert. resting comfortably
--- NOTE | 2020-04-12 14:10 | NUR ---
REPORT GIVEN TO WANDA BOWDEN FOR OLESYA
--- NOTE | 2020-04-12 14:15 | NUR ---
pt noted trying to get out of bed and accidentally pulled iv in the proccess.
--- NOTE | 2020-04-12 14:18 | NUR ---
iv line obtained on RAC 18g.
--- NOTE | 2020-04-12 15:10 | NUR ---
PT TRANSPORTED TO UNIT ON [facility] WITH EMT AND RN AT BEDSIDE W/ ACLS PROTOCOL. NAD NOTED DURING TRANSPORT. PT WAS ASSISTED WITH TRANSFER FROM [place] TO BED.
--- NOTE | 2020-04-12 15:20 | NUR ---
RECEIVED PATIENT FROM ER VIA GURNEY. PATIENT IS A/OX1, CONFUSED, SWAZI SPEAKING. NOT IN ANY FORM OF DISTRESS. VSS. IV ACCESS INTACT AND PATENT. SITUATED IN THE ROOM. REFUSED SKIN ASSESSMENT PATIENT IS SWINGING HIS ARMS, PATIENT IS UNCOOPERATIVE, AGGRESSIVE, COMBATIVE, NON COMPLIANT. SITUATED IN THE ROOM, PATIENT IN BED RESTING. KEPT PATIENT SAFE AND COMFORTABLE. BED IN LOW/LOCKEDMSPOTIION, SIDERAILS UPX2, CALL LIGHT IN REACH. BED ALARM ON. WILL MONIOTR ACCORDINGLY
--- NOTE | 2020-04-12 15:30 | NUR ---
RN NOTES WENT TO CHECK PATIENT IN THE ROOM BED ALARM GOES OFF. FOUND PATIENT STANDING NAKED AND WALKING/PACING IN THE ROOM WITH IV ACCESS PULLED OUT. APPLIED PRESSURE ON IV SITE ON LEFT ARM AND COVERED IT WITH GAUZE, BLEEDING STOPPED. REFUSED TO WEAR TELEMONIOTR. CALLED DR GALEAS AND MADE HIM AWARE OF THE SITUATION. PER DR GALEAS, DONT USE RESTRAINT ON THE PATIENT HE WILL GET MORE AGITATED, JUST ORDER A SITTER. CHARGE NURSE ABBI WAS MADE AWARE AND ACLLED INTERNATIONAL LOGISTICS ANALYST TO ORER A 1:1 SITTER.
[2020-04-12 16:00] VITALS: BP 143/60
--- NOTE | 2020-04-12 16:30 | NUR ---
SITTER AT BEDSIDE. WILL MONITOR PATIENT ACCORDINGLY.
--- NOTE | 2020-04-12 19:00 | NUR ---
COOLER SUPERVISOR OPENING NOTES RECEIVED PATIENT AWAKE ALERT AND ORIENTED X1, ABLE TO FOLLOW SIMPLE COMMANDS HOWEVER STILL CONFUSED, RESPIRATIONS EVEN AND UNLABORED WITH EQUAL RISE AND FALL OF CHEST, APPEARS FREE OF ANY PAIN OR DISTRESS. SITTING IN CHAIR SITTER AT BEDSIDE, DOES NOT HAVE IV SITE PER REPORT PULLED OUT IV AND REFUSING ALSO REMOVING CARDIAC TELE MONITOR WILL ATTEMPT TO PLACE AT A LATER TIME.ORIENTED TO STAFF AND CALL LIGHT AND KEPT WITHIN REACH, ALL NEEDS ATTENDED AT THIS TIME WILL CONTINUE TO MONITOR AND ATTEND TO NEEDS.
--- NOTE | 2020-04-12 19:00 | NUR ---
international trade compliance manager notes received patient with no iv line and no tele monitor patient removes and refuses despite sitter at bedside, will try to place when patient is calm. Addendum: 04/13/20 at 0636 by PARVEEN CHIN RN per report aware and attempt later.
--- NOTE | 2020-04-12 19:00 | NUR ---
RN CLOSING NOTES PATIENT IN STABLE CONDITION. SITTER AT BEDSIDE. KEPT PATIENT SAFE AND COMFORTABLE. BED IN LOW/LOCKED PSOITION, SIDERAILS UPX2, CALL LIGHT IN REACH. ENDORSED TO WANDA SAINI ACCORDINGLY.
[2020-04-12] MEDS ORDERED: CEFTRIAXONE 1 G VIAL IV SCH (19:30)
[2020-04-12 20:00] VITALS: BP 97/61
[2020-04-12] MEDS ORDERED: BISACODYL SUPP (10 MG) 10 MG/SUPP.RECT SUPP.RECT RC PRN (20:00)
[2020-04-12] MEDS ORDERED: MAGNESIUM HYDROXIDE 30 ML UDC PO PRN (20:00)
[2020-04-12] MEDS ORDERED: NA PHOS,M-B/NA PHOS,DI-BA 1 EA ENEMA RC PRN (20:00)
[2020-04-12] MEDS ORDERED: MISCELLANEOUS MED 1 EA EA XX ONE (20:00)
[2020-04-12] MEDS ORDERED: hydrALAZINE HCL 10 MG TABLET PO PRN (20:00)
[2020-04-12] MEDS ORDERED: DONEPEZIL 5 MG TABLET PO SCH (22:00)
[2020-04-12] MEDS: busPIRone 5 MG TABLET PO SCH (22:05)
[2020-04-12] MEDS: TAMSULOSIN 0.4 MG CAP.SR.24H PO SCH (22:05)
[2020-04-12] MEDS: ATORVASTATIN 40 MG TABLET PO SCH (22:05)
[2020-04-12] MEDS: GABAPENTIN 300 MG CAPSULE PO SCH (22:05)
[2020-04-12] MEDS: QUETIAPINE FUMARATE 25 MG TABLET PO SCH (22:06)
[2020-04-12] MEDS: SENNOSIDES 8.6 MG TABLET PO SCH (22:06)
[2020-04-13 04:15] VITALS: BP 141/68
[2020-04-13] MEDS: busPIRone 5 MG TABLET PO SCH ×3 (04:34→20:34)
--- NOTE | 2020-04-13 04:49 | NUR ---
WOLF HUNTER NOTES ATTEMPTED TO REINSERT IV . PATIENT REFUSING, MOVING ARM AWAY PUSHING MY ARM. PO FLUIDS PROVIDED THROUGHOUT SHIFT.
--- NOTE | 2020-04-13 06:36 | NUR ---
FIELD OPERATIONS TECHNICIAN CLOSING NOTES PATIENT SLEEPING BUT EASILY AROUSABLE WITH PERIODS OF BEING AWAKE .ALERT AND ORIENTED X1, ABLE TO FOLLOW SIMPLE COMMANDS HOWEVER STILL CONFUSED AND AT TIME REFUSES CARE, RESPIRATIONS EVEN AND UNLABORED WITH EQUAL RISE AND FALL OF CHEST, APPEARS FREE OF ANY PAIN OR DISTRESS. DOES NOT HAVE IV SITE ATTEMPTED TO INSERT AND STRONGLY REFUSED.CURRENTLY IN PLACE SR WITH PERIODS OF SB 50-60'S, NO DISTRESS PRESENT, CALL LIGHT KEPT WITHIN REACH, ALL NEEDS ATTENDED AT THIS TIME WILL CONTINUE TO MONITOR AND ATTEND TO NEEDS AND ENDORSE TO SHIFT.UNABLE TO INFUSE IVF. PATIENT REFUSIVE FLUID PROVIDED AND ENCOURAGED THROUGHOUT SHIFT.
[2020-04-13 07:50] LABS: BASOPHILS % (AUTO) 0.1 % (0.0-2.0); HEMATOCRIT 35 % (39-51); HEMOGLOBIN 11.5 g/dL (13.5-17.5); LYMPHOCYTES # (AUTO) 0.7 /CMM (0.8-4.8); LYMPHOCYTES % (AUTO) 6.1 % (20.0-44.0); MEAN CORPUSCULAR HGB CONC 33 g/dl (31.0-36.0); MEAN CORPUSCULAR VOLUME 94 fL (80-96); MONOCYTES # (AUTO) 0.4 /CMM (0.1-1.30); MONOCYTES % (AUTO) 3.2 % (2.0-12.0); NEUTROPHILS # (AUTO) 10.7 /CMM (1.8-8.9); NEUTROPHILS % (AUTO) 90.6 % (43.0-81.0); PLATELET COUNT (AUTO) 144 /CMM (150-450); RED BLOOD CELL COUNT(AUTO) 3.75 MIL/uL (4.5-6.0); WHITE BLOOD COUNT (AUTO) 11.8 K/uL (4.3-11.0)
--- NOTE | 2020-04-13 07:55 | NUR ---
LOCATION DIRECTOR OPENING NOTE PATIENT IN BED RESTING COMFORTABLY. PATIENT IN NO ACUTE DISTRESS. NO SOB NOTED. PATIENT BREATHING IS EVEN AND UNLABORED. PATIENT RESPONSIVE TO VERBAL AND TACTILE STIMULI. PATIENT ON CARDIAC MONITORING READING SINUS RHYTHM HR 69. BED ALARM IS ON. SAFETY PRECAUTIONS IN PLACE. PATIENT WITH 1:1 SITTER. PATIENT WITH NO IV ACCESS AT THIS TIME DUE TO PATIENT BEING AGGRESSIVE WHEN ATTEMPTING TO PLACE IV, MD AWARE. PATIENT BED IS LOCKED AND IN LOWEST POSITION. CALL LIGHT WITHIN REACH. WILL CONTINUE TO MONITOR.
[2020-04-13 07:57] LABS: CALCIUM, SERUM 8.3 mg/dL (8.5-10.1); CREATININE 1.2 mg/dL (0.6-1.3)
[2020-04-13 08:00] VITALS: BP 158/85
[2020-04-13] MEDS: LIPASE/PROTEASE/AMYLASE 1 EACH CAPSULE.DR PO SCH (08:48)
[2020-04-13] MEDS: EZETIMIBE 10 MG TABLET PO SCH (08:48)
[2020-04-13] MEDS: QUETIAPINE FUMARATE 25 MG TABLET PO SCH ×3 (08:48→23:46)
[2020-04-13] MEDS: TICAGRELOR 90 MG TABLET PO SCH ×2 (08:48→17:30)
[2020-04-13] MEDS: PANTOPRAZOLE 40 MG TABLET.DR PO SCH (08:49)
[2020-04-13] MEDS: AMLODIPINE BESYLATE 5 MG TABLET PO SCH (08:49)
[2020-04-13] MEDS: DONEPEZIL 5 MG TABLET PO SCH (08:49)
[2020-04-13] MEDS: ISOSORBIDE MONONITRATE (30MG) 30 MG TAB.SR.24H PO SCH (08:49)
--- NOTE | 2020-04-13 11:42 | NUR ---
IT MANAGER NOTE PATIENT GETTING NOTABLY RESTLESS AND AGITATED. ATIVAN PRN ORDERED TO BE GIVEN.
[2020-04-13] MEDS: LORAZEPAM 1 MG TABLET PO PRN ×2 (11:47→18:39)
--- NOTE | 2020-04-13 12:42 | NUR ---
CHAIN SAW DRIVER NOTE PATIENT ALLOWED FOR IV INSERTION. 24 G LEFT HAND PLACEMENT, FLUSHED AND PATENT.
[2020-04-13] MEDS: CEFTRIAXONE 1 G in IV D5W 50 ML IV SCH (12:46)
[2020-04-13] MEDS: IV NS 0.9% 1,000 ML IV PRN (12:46)
[2020-04-13 16:00] VITALS: BP 129/62
--- NOTE | 2020-04-13 18:40 | NUR ---
CLAM GROWER NOTE PATIENT REMOVED IV ACCESS. PATIENT GETTING NOTABLY RESTLESS AND AGITATED. ATIVAN PRN ORDERED TO BE GIVEN.
--- NOTE | 2020-04-13 18:50 | NUR ---
MARINE TECHNICIAN CLOSING NOTE PATIENT IN BED RESTING COMFORTABLY. PATIENT IN NO ACUTE DISTRESS. NO SOB NOTED. PATIENT BREATHING IS EVEN AND UNLABORED. PATIENT RESPONSIVE TO VERBAL AND TACTILE STIMULI. PATIENT ON CARDIAC MONITORING READING SINUS RHYTHM HR 64. PATIENT KEPT CLEAN, DRY AND COMFORTABLE THROUGHOUT SHIFT. BED ALARM IS ON. SAFETY PRECAUTIONS IN PLACE. PATIENT WITH 1:1 SITTER. ENCOURAGED PO INTAKE FOR HYDRATION THROUGHOUT SHIFT. ATTEMPTED TO PLACE IV LINE MULTIPLE TIMES BUT PATIENT GETS AGGRESSIVE. PATIENT WITH NO IV ACCESS AT THIS TIME DUE TO PATIENT BEING AGGRESSIVE WHEN ATTEMPTING TO PLACE IV, DR. GALEAS AWARE. PATIENT REMOVED IV LINE PRIOR TO SHIFT CHANGE. INFORMED DR. GALEAS THAT DR. FERNANDEZ ALREADY SEEN AND EVALUATED PATIENT. NO NEW ORDERS FROM DR. FERNANDEZ. DR. GALEAS IS AWARE, PER MD FOLLOW UP WITH SUPPLIER DEVELOPMENT MANAGER WHEN PATIENT IS CALMER. MADE AWARE TO SUPPLIER DEVELOPMENT MANAGER RN THAT PATIENT NEEDS IV ACCESS AND TO FOLLOW UP WITH IV INSERTION WHEN PATIENT IS CALM. PATIENT BED IS LOCKED AND IN LOWEST POSITION. CALL LIGHT WITHIN REACH. WILL ENDORSE CARE TO PM SHIFT FOR OLESYA.
--- NOTE | 2020-04-13 19:43 | NUR ---
TELE/RN OPENING NOTES RECEIVED PATIENT IN BED, CONFUSED INCOHERENT, DISORIENTED, LAB CALLED AND REPORTED BLOOD CULTURE RESULT OF GRAM POSITIVE COCCI FROM JOEL. TO F/U WITH DR. GALEAS.
--- NOTE | 2020-04-13 19:45 | NUR ---
TELE/RN OPENING NOTES RECEIVED REPORT OF LAB FOR BLOOD CULTURE PRELIMINARY BY JOEL WITH GRAM POSITIVE COCCI. MD AWARE, ON ROCEPHIN IV DAILY TO START RE INSERTION PATIENT DO NOT HAVE IV ACCESS.
--- NOTE | 2020-04-13 20:10 | NUR ---
BARREL BANDER NOTES. SINUS RYTHMN
--- NOTE | 2020-04-13 20:30 | NUR ---
TELE/RN NOTES PATIENT REFUSING TELE BOX, AND PULLING OUT TUBES.
[2020-04-13] MEDS: SENNOSIDES 8.6 MG TABLET PO SCH (22:00)
--- NOTE | 2020-04-13 23:41 | NUR ---
TELE/RN NOTES SEN[place]OT NOT GIVEN DUE TO HAVING MULTIPLE BM BUT NO LOOSE STOOL.
[2020-04-13] MEDS: ATORVASTATIN 40 MG TABLET PO SCH (23:45)
[2020-04-13] MEDS: GABAPENTIN 300 MG CAPSULE PO SCH (23:46)
[2020-04-13] MEDS: TAMSULOSIN 0.4 MG CAP.SR.24H PO SCH (23:46)
--- NOTE | 2020-04-14 | NUR ---
TELE/RN NOTES PATIENT ABLE TO SLEEP DURING THE NIGHT AND ABLE TO COOPERATE, COMPLIANT WITH MEDICATION. BUT REFUSE TELE BOX ON, UNABLE TO INSERT IV AT THIS TIME.
[2020-04-14 00:04] VITALS: BP 120/70
[2020-04-14 04:00] VITALS: BP 132/62
[2020-04-14] MEDS: busPIRone 5 MG TABLET PO SCH ×3 (05:17→20:26)
--- NOTE | 2020-04-14 06:17 | NUR ---
327-1 TELE/RN NOTES PATIENT MONITORED FOR SAFETY, REQUIRE REORIENTATION AND REMINDER FOR ANY CHANGES, BED LOCKED, CALL LIGHTS WITHIN REACH, SITTER AT BEDSIDE, PROVIDED AND OFFERED FLUIDS, ABLE TO TOLERATE, COMPLIANT WITH PO MEDS BUT REFUSE TO HAVE IV REINSERT AT THIS TIME. WILL ENDORSE TO AM RN FOR OLESYA.
[2020-04-14 08:00] VITALS: BP_SYST 133; BP_SYST 140; BP_DIAS 65; BP_DIAS 75
[2020-04-14] MEDS: QUETIAPINE FUMARATE 25 MG TABLET PO SCH ×3 (09:04→21:06)
[2020-04-14] MEDS: AMLODIPINE BESYLATE 5 MG TABLET PO SCH (09:04)
[2020-04-14] MEDS: LIPASE/PROTEASE/AMYLASE 1 EACH CAPSULE.DR PO SCH (09:04)
[2020-04-14] MEDS: ISOSORBIDE MONONITRATE (30MG) 30 MG TAB.SR.24H PO SCH (09:04)
[2020-04-14] MEDS: EZETIMIBE 10 MG TABLET PO SCH (09:04)
[2020-04-14] MEDS: DONEPEZIL 5 MG TABLET PO SCH (09:05)
[2020-04-14] MEDS: PANTOPRAZOLE 40 MG TABLET.DR PO SCH (09:08)
[2020-04-14] MEDS: TICAGRELOR 90 MG TABLET PO SCH ×2 (09:44→17:20)
[2020-04-14] MEDS: ACETAMINOPHEN 325 MG TABLET PO PRN ×2 (09:57→18:41)
[2020-04-14] MEDS: IV NS 0.9% 1,000 ML IV PRN (09:57)
--- NOTE | 2020-04-14 09:58 | NUR ---
TELE/RN NOTE THE PATIENT COMPLAINS OF RIGHT UPPER LEG PAIN 11/02. TYLENOL 650 MG PO GIVEN. WILL CONTINUE TO MONITOR.
[2020-04-14 10:20] LABS: CALCIUM, SERUM 8.2 mg/dL (8.5-10.1); CREATININE 0.9 mg/dL (0.6-1.3); POTASSIUM 3.3 mmol/L (3.5-5.1)
--- NOTE | 2020-04-14 10:57 | NUR ---
TELE/RN NOTE THE PATIENT VERBALIZED RELIEF FROM PAIN. RATED PAIN 0/10. THE PATIENT IS IN NO APPARENT DISTRESS.
--- NOTE | 2020-04-14 11:58 | NUR ---
TELE/RN NOTE DR GALEAS IS MADE AWARE OF URINE CULTURE RESULT. NO NEW ORDER AT THIS TIME.
--- NOTE | 2020-04-14 11:58 | NUR ---
TELE/RN NOTE EXTERNAL TELE BOX READING IS SINUS BRADYCARDIA 58.
[2020-04-14] MEDS ORDERED: POTASSIUM CHLORIDE 20 MEQ TAB.PRT.SR PO ONE (12:00)
[2020-04-14] MEDS: CEFTRIAXONE 1 G in IV D5W 50 ML IV SCH (12:15)
--- NOTE | 2020-04-14 13:41 | NUR ---
TELE/RN NOTE RECEIVED A CALL FROM DR GALEAS WITH NEW ORDER OF DOXYCYCLINE HYCLATE 100 MG PO BID FOR 5 DAYS PROPHYLAXIS. THE ORDER IS READ BACK, VERIFIED. NOTED AND CARRIED OUT.
[2020-04-14 16:00] VITALS: BP 143/64
--- NOTE | 2020-04-14 16:50 | NUR ---
TELE/RN NOTE THE PATIENT IS NON-COMPLIANT CLEANING AND PROVIDING SKIN CARE DESPITE EXPLAINING RISKS AND BENEFITS.
[2020-04-14] MEDS: DOXYCYCLINE HYCLATE (100 MG) 100 MG TABLET PO SCH (17:20)
--- NOTE | 2020-04-14 18:50 | NUR ---
TELE/RN NOTE THE PATIENT IS IN BED. ALERT AND ORIENTED TO SELF. VERBALLY RESPONSIVE. DENIES PAIN. IN ROOM AIR AND SATURATION IS AT 96%. DENIES SOB. PATIENT IS NOTED WITH TEMP OF 100.6F. TYLENOL 650 MG PO GIVEN. WILL ENDORSE TO MONITOR TEMP. RAC G 24 PATENT AND NORMAL SALINE INFUSING AT 75NML/HR. NO S/S INFILTRATION NOTED. BED LOW AND LOCKED. SIDE RAILS UP X3. CALL LIGHT WITHIN REACH. WILL ENDORSE TO NIGHTS SHIFT. Addendum: 04/14/20 at 1906 by SEE LOYA RN TELE/OUTSIDE SALES REPRESENTATIVE BOX READING IS SR 70.
--- NOTE | 2020-04-14 19:34 | NUR ---
TELE/RN OPENING NOTES RECEIVED PATIENT IN BED, AWAKE, ALERT X1, WITH SITTER REQUIRE ORIENTATION AND SAFETY MEASURES. SKIN WARM TO TOUCH, ON ROOM AIR,BED LOCKED, CALL LIGHTS WITHIN REACH. IV SITE ON RIGHT AC GAUGE 24 PATENT, WILL CONTINUE TO MONITOR.
[2020-04-14 20:00] VITALS: BP 137/70
--- NOTE | 2020-04-14 20:18 | NUR ---
TELE/RN- SINUS NAYANA 55.
--- NOTE | 2020-04-14 20:45 | NUR ---
TELE/RN NOTES PATIENT REFUSE TO HAVE TELE MONITOR, PULLING OUT , EXHIBITING AGITATION, SITTER AT BED SIDE FOR SAFETY.
[2020-04-14] MEDS: TAMSULOSIN 0.4 MG CAP.SR.24H PO SCH (21:06)
[2020-04-14] MEDS: ATORVASTATIN 40 MG TABLET PO SCH (21:06)
[2020-04-14] MEDS: GABAPENTIN 300 MG CAPSULE PO SCH (21:06)
[2020-04-14] MEDS: SENNOSIDES 8.6 MG TABLET PO SCH (21:06)
[2020-04-15] MEDS: IV NS 0.9% 1,000 ML IV PRN ×2 (01:25→20:48)
[2020-04-15 04:00] VITALS: BP 157/68
[2020-04-15] MEDS: busPIRone 5 MG TABLET PO SCH ×3 (04:16→21:30)
--- NOTE | 2020-04-15 04:16 | NUR ---
TELE/RN NOTES PATIENT OBSERVE ASLEEP AND MONITORING FOR CHANGES.
--- NOTE | 2020-04-15 06:33 | NUR ---
327-1 TELE/RN NOTES ATTENDED TO ALL NEEDS, SAFETY MEASURES, WITH SITTER,KEPT COMFORTABLE, ON ROOM AIR, BED LOCKED, CALL LIGHTS WITHIN REACH. WILL ENDORSE TO AM RN FOR OLESYA.
--- NOTE | 2020-04-15 07:05 | NUR ---
QUALITY CONTROL MICROBIOLOGY SUPERVISOR OPENING NOTES RECEIVED PT IN BED AWAKE AT THIS TIME, AOXQ. PT ON MECHANICAL VENT, AC 12, VT 500, FIO2 40, PEEP 5. EXTERNAL CARDIAC TELE MONITOR READING NSR 85. NO SOB NOTED, NO S/S OF ANY ACUTE DISTRESS OR PAIN NOTED. RESPIRATIONS EVEN AND UNLABORED, MULTIPLE SKIN ISSUES NOTED. LEFT FEMORAL HD CATH NOTED. G-TUBE IN PLACE,AND FLUSHING WELL WITH NO RESIDUAL NOTED. TESSY MIDLINE AND TESSY G#20 BOTH INTACT, PATENT AND FLUSHING WELL. SAFETY PRECAUTIONS IN PLACE, BED IN LOWEST LOCKED POSITION, SIDE RAILS UP, HOB ELEVATED, CALL LIGHT WITHIN REACH. WILL CONTINUE TO MONITOR Addendum: 04/15/20 at 0759 by MARU ARGUETA RN QUALITY CONTROL MICROBIOLOGY SUPERVISOR OPENING NOTES RECEIVED PT IN BED AWAKE AT THIS TIME, AOX1, [place] SPEAKING. PT ABLE TO FOLLOW SIMPLE COMMANDS. PT ON EXTERNAL CARDIAC TELE MONITOR ON STANDBY. NO SOB NOTED, NO S/S OF ANY ACUTE DISTRESS OR PAIN NOTED. RESPIRATIONS EVEN AND UNLABORED, IV ACCESS IN L-WRIST G#22 INTACT, PATENT AND FLUSHING WELL. ASPIRATION AND SAFETY PRECAUTIONS IN PLACE AND MAINTAINED AT ALL TIMES, BED IN LOWEST LOCKED POSITION, SIDE RAILS UP, HOB ELEVATED TO SEMI FOWLERS POSITION, CALL LIGHT WITHIN REACH. WILL CONTINUE TO MONITOR
[2020-04-15 07:40] LABS: BASOPHILS % (AUTO) 0.1 % (0.0-2.0); EOSINOPHILS % (AUTO) 0.5 % (0.0-6.0); HEMATOCRIT 35 % (39-51); HEMOGLOBIN 11.7 g/dL (13.5-17.5); LYMPHOCYTES # (AUTO) 0.9 /CMM (0.8-4.8); LYMPHOCYTES % (AUTO) 8.9 % (20.0-44.0); MEAN CORPUSCULAR HGB CONC 34 g/dl (31.0-36.0); MEAN CORPUSCULAR VOLUME 92 fL (80-96); MONOCYTES # (AUTO) 0.6 /CMM (0.1-1.30); NEUTROPHILS # (AUTO) 8.6 /CMM (1.8-8.9); NEUTROPHILS % (AUTO) 84.5 % (43.0-81.0); PLATELET COUNT (AUTO) 136 /CMM (150-450); RED BLOOD CELL COUNT(AUTO) 3.79 MIL/uL (4.5-6.0); WHITE BLOOD COUNT (AUTO) 10.1 K/uL (4.3-11.0)
[2020-04-15 08:18] LABS: CALCIUM, SERUM 7.9 mg/dL (8.5-10.1); CREATININE 0.8 mg/dL (0.6-1.3); POTASSIUM 3.1 mmol/L (3.5-5.1)
[2020-04-15] MEDS: PANTOPRAZOLE 40 MG TABLET.DR PO SCH (08:27)
--- NOTE | 2020-04-15 08:44 | NUR ---
PT POTASSIUM LEVEL OF 3.1. DOCTOR ADAL MADE AWARE. PER DOCTOR ADAL, ADMINISTER KCL 40MEQ PO DAILY FIRST DOSE NOW. ORDERS CARRIED OUT WILL CONTINUE TO MONITOR
--- NOTE | 2020-04-15 08:44 | NUR ---
DOCTOR ADAL HAD TELEMEDICINE/HEALTH CONSULT/ASSESSMENT WITH PATIENT VIA [facility]. PER DR GALEAS REQUEST, RENAL ULTRASOUND WAS ORDERED FOR TODAY, BMP FOR TODAY AND TOMORROW. ORDERS CARRIED OUT. WILL CONTINUE TO MONITOR
[2020-04-15] MEDS: EZETIMIBE 10 MG TABLET PO SCH (09:43)
[2020-04-15] MEDS: LIPASE/PROTEASE/AMYLASE 1 EACH CAPSULE.DR PO SCH (09:43)
[2020-04-15] MEDS: AMLODIPINE BESYLATE 5 MG TABLET PO SCH (09:44)
[2020-04-15] MEDS: DONEPEZIL 5 MG TABLET PO SCH (09:44)
[2020-04-15] MEDS: ISOSORBIDE MONONITRATE (30MG) 30 MG TAB.SR.24H PO SCH (09:44)
[2020-04-15] MEDS: DOXYCYCLINE HYCLATE (100 MG) 100 MG TABLET PO SCH ×2 (09:44→17:36)
[2020-04-15] MEDS: QUETIAPINE FUMARATE 25 MG TABLET PO SCH ×3 (09:44→21:30)
[2020-04-15] MEDS: POTASSIUM CHLORIDE 20 MEQ TAB.PRT.SR PO SCH (09:47)
[2020-04-15] MEDS: TICAGRELOR 90 MG TABLET PO SCH ×2 (09:48→17:37)
--- NOTE | 2020-04-15 12:40 | NUR ---
PT IS CONFUSED AND COMBATIVE. DUE TO NON-COOPERATION NOT ABLE TO EVALUATE THE BLADDER. CHARGE NURS/MADAN AND RN/IMMACULATE WERE INFORMED
[2020-04-15] MEDS: CEFTRIAXONE 1 G in IV D5W 50 ML IV SCH (12:52)
--- NOTE | 2020-04-15 18:00 | NUR ---
CUSHION MAKER HAND CLOSING NOTES PT IN BED AWAKE AT THIS TIME, PATIENT REMAINED STABLE THROUGH OUT SHIFT. . PATIENT KEPT CLEAN AND DRY. ALL CARE, NEEDS, TREATMENT AND MEDICATIONS ADMINISTERED ANTICIPATED PER ORDER. ASPIRATION AND SAFETY PRECAUTIONS IN PLACE AND MAINTAINED AT ALL TIMES, BED IN LOWEST LOCKED POSITION, SIDE RAILS UP, HOB ELEVATED TO SEMI FOWLERS POSITION, CALL LIGHT WITHIN REACH. WILL ENDORSE TO FLAT SCREEN WORKER NURSE FOR OLESYA
--- NOTE | 2020-04-15 19:20 | NUR ---
RN medsurg opening notes Received Pt from morning nurse. Pt is resting in bed comfortably. Pt is alert and orientedX1. Pt speaks Azeri and able to make needs known. Respiration is normal. No SOB. No S/S of distress noted. IV sites at L wrist#20 is clean, intact and infusing well NS @ 75 ml/hr. Sitter at the bedside. Safety precautions is maintained. Bed at low position, brakes locked, side rails upX2 and call light is within reach. Will continue to monitor.
[2020-04-15 20:00] VITALS: BP 138/70
[2020-04-15] MEDS: SENNOSIDES 8.6 MG TABLET PO SCH (21:29)
[2020-04-15] MEDS: TAMSULOSIN 0.4 MG CAP.SR.24H PO SCH (21:29)
[2020-04-15] MEDS: ATORVASTATIN 40 MG TABLET PO SCH (21:30)
[2020-04-15] MEDS: GABAPENTIN 300 MG CAPSULE PO SCH (21:30)
[2020-04-16] MEDS: busPIRone 5 MG TABLET PO SCH ×2 (04:00→12:09)
--- NOTE | 2020-04-16 06:50 | NUR ---
RN medsurg closing notes Pt is resting in bed comfortably. Pt is alert and orientedX1. Pt speaks Citizen Of [place] and able to make needs known. Respiration is normal. No SOB. No S/S of distress noted. VS is stable. Routine meds were given as ordered. IV sites at L wrist#20 is clean, intact and infusing well NS @ 75 ml/hr. Sitter at the bedside. Kept Pt clean, dry and comfortable. All needs met and attended. Safety precautions is maintained. Bed at low position, brakes locked, side rails upX2 and call light is within reach. Will endorse to morning nurse for OLESYA.
--- NOTE | 2020-04-16 07:24 | NUR ---
MS RN OPENING NOTES RECEIVED PATIENT IN BED, ASLEEP. PATIENT IS ON ROOM AIR; BREATHING IS EVEN AND UNLABORED, NO SOB NOTED AT THIS TIME. NO SIGNS OF PAIN SUCH FACIAL GRIMACING, MOANING OR GUARDING. L WRIST IV ACCESS PRESENT AND INTACT INFUSING NS @75 MLS/HR. SITTER AT BEDSIDE. SAFETY PRECAUTIONS IN PLACE; BED IN LOW POSITION AND LOCKED, RAILS UP X2, CALL LIGHT WITHIN REACH. WILL CONTINUE TO MONITOR PATIENT.
[2020-04-16] MEDS: PANTOPRAZOLE 40 MG TABLET.DR PO SCH (09:09)
[2020-04-16] MEDS: DONEPEZIL 5 MG TABLET PO SCH (09:09)
[2020-04-16] MEDS: DOXYCYCLINE HYCLATE (100 MG) 100 MG TABLET PO SCH (09:10)
[2020-04-16] MEDS: EZETIMIBE 10 MG TABLET PO SCH (09:10)
[2020-04-16] MEDS: LIPASE/PROTEASE/AMYLASE 1 EACH CAPSULE.DR PO SCH (09:10)
[2020-04-16 09:11] VITALS: BP 118/80
[2020-04-16] MEDS: AMLODIPINE BESYLATE 5 MG TABLET PO SCH (09:11)
[2020-04-16] MEDS: ISOSORBIDE MONONITRATE (30MG) 30 MG TAB.SR.24H PO SCH (09:11)
[2020-04-16] MEDS: QUETIAPINE FUMARATE 25 MG TABLET PO SCH (09:11)
[2020-04-16] MEDS: POTASSIUM CHLORIDE 20 MEQ TAB.PRT.SR PO SCH (09:12)
[2020-04-16] MEDS: TICAGRELOR 90 MG TABLET PO SCH (09:15)
[2020-04-16 10:32] LABS: CALCIUM, SERUM 8.3 mg/dL (8.5-10.1); CREATININE 0.8 mg/dL (0.6-1.3); POTASSIUM 3.2 mmol/L (3.5-5.1)
[2020-04-16] MEDS: CEFTRIAXONE 1 G in IV D5W 50 ML IV SCH (11:29)
--- NOTE | 2020-04-16 15:54 | NUR ---
MS REGISTER CLERK NOTE PATIENT DISCHARGED TO SNF IN MEDICALLY STABLE CONDITION. PATIENT ON ROOM AIR SATURATING WELL AND VITAL SIGNS WITHIN NORMAL LIMITS. ALL DISCHARGE PAPERWORK READY AND SIGNED BY TWO RNs; PATIENT A/O X 1. PATIENT HAD NO BELONGINGS WITH HIM. SKIN INTACT WITH SOME BRUISES TO BILATERAL ARMS ALSO REDNESS AT THE GROIN AND MOVING INTO THE SACRUM. NO OPEN WOUNDS. PHOTOS TAKEN AND FILED IN THE CHART. FACILITY CALLED AND REPORT GIVEN. PATIENT'S IV LEFT IN PLACE DUE TO FACILITY REQUEST TO CONTINUE ANTIBIOTICS PER MD ORDER. PATIENT LEFT THE UNIT ACCOMPANIED BY 2 reduction plant supervisor AT 1540.
== END 2020-04-16 15:45 | DRG 871 ==
LOC: ER 10:20 → TELE 14:42 → MED 04-15 10:44
PROVIDERS: ADMIT Internal Medicine; ATTEND Internal Medicine
DX: A41.9 Sepsis, unspecified organism (principal); J18.9 Pneumonia, unspecified organism; N17.0 Acute kidney failure with tubular necrosis; G93.40 Encephalopathy, unspecified; N39.0 Urinary tract infection, site not specified; E87.0 Hyperosmolality and hypernatremia; F05 Delirium due to known physiological condition; F03.90 Unspecified dementia, unspecified severity, without behavioral disturbance, psychotic disturbance, mood disturbance, and anxiety; N40.0 Benign prostatic hyperplasia without lower urinary tract symptoms; G60.9 Hereditary and idiopathic neuropathy, unspecified; I25.10 Atherosclerotic heart disease of native coronary artery without angina pectoris; I25.2 Old myocardial infarction; Z98.61 Coronary angioplasty status; R26.9 Unspecified abnormalities of gait and mobility; E11.9 Type 2 diabetes mellitus without complications; Z88.8 Allergy status to other drugs, medicaments and biological substances; Z79.899 Other long term (current) drug therapy; I10 Essential (primary) hypertension; E87.8 Other disorders of electrolyte and fluid balance, not elsewhere classified; Z79.02 Long term (current) use of antithrombotics/antiplatelets; B96.20 Unspecified Escherichia coli [E. coli] as the cause of diseases classified elsewhere
CPT/HCPCS: 36415; 71045-TC; 76770-TC; 80048-TC; 80076-TC; 81000-TC; 83605-TC; 83735-TC; 84484-TC; 85025-TC; 85730-TC; 87040-TC; 87081-TC; 87086-TC; 87186-TC; G0378; J0456; J0696; J7030; J7040; J7060

== ENCOUNTER 2020-10-08 08:44 | Emergency (ER) | payer MEDICARE, OTHER ==
[~2020-10-08] VITALS: Ht 182.9 cm; Wt 77.1 kg
[~2020-10-08 08:44] MED LIST changes: +ACET325T53 PO; -ATOR40TA PO; +BISA10SU11 RC; +BUSP10TA3 PO; -DEXL60CA3 PO; -DOCU-141 PO; +DONE10TA11 PO; -DONE5TAB34 PO; -EZET10TA16 PO; +EZET10TA6 PO; +GABA600T PO; -GABA600T12 PO; +LORA-259 PO; +MAGN400O6 PO; +NA P133E RC; +OMEP20TA5 PO; +QUET25TA PO; +QUET50TA PO; +SENN-261 PO
[2020-10-08] MEDS ORDERED: SODIUM BICARBONATE SYR 50 MEQ/50 ML DISP.SYRIN IV ONE (08:46)
[2020-10-08] MEDS ORDERED: NOREPINEPHRINE 4 MG/4 ML AMPUL IV ONE (08:46)
[2020-10-08] MEDS ORDERED: FEE EMEERGENCY 1 MIN EA MC ONE (08:46)
[2020-10-08] MEDS ORDERED: ATROPINE SULFATE 1 MG/10 ML DISP.SYRIN IV ONE (08:46)
[2020-10-08] MEDS ORDERED: EPINEPHRINE (1:10,000) SYRINGE 1 MG/10 ML DISP.SYRIN IVP ONE (08:46)
[2020-10-08] MEDS ORDERED: PROPOFOL 100 ML ONE (08:52)
[2020-10-08] MEDS ORDERED: VANCOMYCIN 1 GM in IV D5W 250 ML IV ONE (09:00)
[2020-10-08] MEDS ORDERED: NOREPINEPHRINE 8 MG in IV NS 0.9% 242 ML IV PRN (09:00)
[2020-10-08] MEDS ORDERED: CEFEPIME 1 GM in IV D5W 50 ML IV ONE (09:00)
--- NOTE | 2020-10-08 09:01 | NUR ---
intubation started by dr castro. rt, rns and medical transcription editor by bedside assistingh.
--- NOTE | 2020-10-08 09:04 | NUR ---
intubation compelted by dr. castro. 7.5cm/23 @ lip
--- NOTE | 2020-10-08 09:05 | NUR ---
no pulse noted. code blue initiated. chest compressions started.
--- NOTE | 2020-10-08 09:16 | NUR ---
rosc noted. pulse appreciated on L carotid. central line placed by
[2020-10-08] MEDS ORDERED: ASCO500C18 PO (09:19)
[2020-10-08] MEDS ORDERED: ZINC1CAP3 PO (09:19)
[2020-10-08] MEDS ORDERED: AMIN887L PO (09:19)
[2020-10-08] MEDS ORDERED: MULT-439 PO (09:19)
[2020-10-08] MEDS ORDERED: DOPamine 400MG/D5W 250ML RTU 250 ML ONE (09:21)
--- NOTE | 2020-10-08 09:25 | NUR ---
PEA noted. code blue initiated. compressions started.
[2020-10-08] MEDS ORDERED: SODIUM BICARBONATE SYR 50 MEQ/50 ML DISP.SYRIN ONE (09:28)
[2020-10-08] MEDS ORDERED: CALCIUM CHLORIDE 1,000 MG/10 ML DISP.SYRIN ONE (09:28)
[2020-10-08 09:33] LABS: BASOPHILS % (AUTO) 0.1 % (0.0-2.0); EOSINOPHILS % (AUTO) 0.2 % (0.0-6.0); LYMPHOCYTES # (AUTO) 1.2 /CMM (0.8-4.8); LYMPHOCYTES % (AUTO) 19.4 % (20.0-44.0); MEAN CORPUSCULAR HGB CONC 28 g/dl (31.0-36.0); MEAN CORPUSCULAR VOLUME 112 fL (80-96); MONOCYTES # (AUTO) 0.2 /CMM (0.1-1.30); MONOCYTES % (AUTO) 3.4 % (2.0-12.0); NEUTROPHILS # (AUTO) 4.9 /CMM (1.8-8.9); NEUTROPHILS % (AUTO) 76.9 % (43.0-81.0); PLATELET COUNT (AUTO) 91 /CMM (150-450); WHITE BLOOD COUNT (AUTO) 6.3 K/uL (4.3-11.0)
--- NOTE | 2020-10-08 09:38 | NUR ---
PT PRONOUNCED BY DR. HINSON.
[2020-10-08 09:44] LABS: RED BLOOD CELL COUNT(AUTO) 0.84 MIL/uL (4.5-6.0)
[2020-10-08 09:46] LABS: HEMATOCRIT 9 % (39-51); HEMOGLOBIN 2.6 g/dL (13.5-17.5)
--- NOTE | 2020-10-08 09:48 | NUR ---
CALLED DR. GALEAS AND MADE AWARE OF PATIENT'S . STATED HE WILL SIGN THE CERTIFICATE.
--- NOTE | 2020-10-08 09:49 | NUR ---
ADMITTING AND IMDUR MADE AWARE
--- NOTE | 2020-10-08 10:25 | NUR ---
LEFT A MESSAGE TO EUGENIE MARTINS
--- NOTE | 2020-10-08 10:25 | NUR ---
CALLED [facility] PRESS OPERATOR, SPOKE TO BESS AND STATED "NOT A CORONERS CASE"
--- NOTE | 2020-10-08 10:31 | NUR ---
CALLED [facility]. NOT A CANDIDATE PER ANGEL. REF# [id number]
--- NOTE | 2020-10-08 10:55 | NUR ---
NIECE CALLED BACK, AND MADE AWARE OF PATIENT'S .
--- NOTE | 2020-10-08 10:58 | NUR ---
POST-MORTEM CARE DONE.
--- NOTE | 2020-10-08 11:41 | NUR ---
PATIENT TRANSFERRED TO [facility]. NO BELONGINGS. PAPERWORKS GIVEN TO NURSING PALLIATIVE CARE NURSE.
[2020-10-08 11:42] VITALS: BP 73/38
[2020-10-08 12:24] LABS: D-DIMER 0.34 mg/L(FEU (0.17-0.50)
[2020-10-08] MEDS ORDERED: ROCURONIUM BROMIDE 50 MG/5 ML ONE (14:00)
[2020-10-08] MEDS ORDERED: ETOMIDATE 2 MG/ML VIAL ONE (14:00)
[2020-10-08 14:23] LABS: BAND % (MANUAL) 3 % (0.0-5.0); LYMPHOCYTES % (MANUAL) 14 % (16-48); MONOCYTES % (MANUAL) 1 % (0-11.0); NEUTROPHILS % (MANUAL) 82 (42-76)
== END 2020-10-08 11:42 ==
LOC: ER 08:45
DX: I46.9 Cardiac arrest, cause unspecified (principal); J96.21 Acute and chronic respiratory failure with hypoxia; D64.9 Anemia, unspecified; E11.9 Type 2 diabetes mellitus without complications; F03.90 Unspecified dementia, unspecified severity, without behavioral disturbance, psychotic disturbance, mood disturbance, and anxiety; I25.10 Atherosclerotic heart disease of native coronary artery without angina pectoris; G60.9 Hereditary and idiopathic neuropathy, unspecified; Z87.01 Personal history of pneumonia (recurrent); Z95.818 Presence of other cardiac implants and grafts; Z88.8 Allergy status to other drugs, medicaments and biological substances; Z79.899 Other long term (current) drug therapy
CPT/HCPCS: 31500; 36556; 84145; 85007; 85025; 85378; 85730; 92950; 93005; 96365; 99291; J0171; J0461; J1265; J3490 ×5; 36415; J0692; J7050; J7060